=== PATIENT | male | born 1975 | race Caucasian/White ===

== ENCOUNTER 2017-06-15 21:58 | Emergency (ER) | payer SELFPAY ==
[~2017-06-15 21:58] MED LIST: AMLO5TAB22 PO; CREO2400 PO; PAXI10TA PO; PROM25SU8 PO; PROT40TA PO; SERO100T PO; TRAZ100 PO
[2017-06-15 22:09] VITALS: BP 118/60; PULSE 99; RESP 17; TEMP 98.8; O2SAT 97
== END 2017-06-15 23:20 | disposition left against medical advice (07) ==
LOC: NED 21:58
DX: R10.9 Unspecified abdominal pain (principal)
CPT/HCPCS: 99281

== ENCOUNTER 2018-02-15 00:45 | Inpatient (IN) ==
[2018-02-15] MEDS ORDERED: Sod Chloride 0.9% Inj 1,000 ML IV.SIG ONE (01:27)
--- NOTE | 2018-02-15 01:36 | ED ---
HPI General Chief Complaint: Alcohol Stated Complaint: Chronic Pancreatitis x 1 month Time Seen by Provider: 02/15/18 01:27 Source: patient Mode of arrival: ambulatory Limitations: no limitations History of Present Illness HPI narrative: 42-year-old male with history of chronic alcoholism and recurrent pancreatitis presents to the emergency department for reportedly 3-4 days of abdominal pain. Patient reports nausea and vomiting does not report bilious emesis hematemesis or coffee-ground emesis. Patient states he has not been evaluated over the past 3-4 days for his pain but review of medical record indicates that he was seen here 02/13/18 for same complaint. Patient was diagnosed with epigastric pain and discharged with refills for his Klonopin and his Tegretol. Patient states that he is unable to care for himself. Patient reports that he takes Tegretol for history of seizure disorder. Patient denies other concerns or complaints. No report of fever or chills. No report of injury or fall. Patient has a walking boot on his left lower extremity and reports that he has been told he has a foot fracture. MD complaint: Reports alcohol intoxication and alcohol dependence Last Drank: Just Prior to Arrival Chronic alcohol use: Yes Previous visits for alcohol intoxication: Yes Recent trauma: No Associated symptoms: Reports nausea, vomiting and abdominal pain; Denies syncope , seizure, diaphoresis, tremors, hematemesis, melena, depression and suicidality Treatments prior to arrival: Reports none Related Data Home Medications Medication Instructions Recorded Confirmed carbamazepine [Tegretol] 100 mg PO TID 02/13/18 02/15/18 lorazepam 1 mg PO BID PRN 02/13/18 02/15/18 paroxetine HCl 40 mg PO DAILY 02/13/18 02/15/18 morphine 30 mg PO Q8H 02/15/18 02/15/18 trazodone 300 mg PO DAILY 02/15/18 02/15/18 Previous Rx's Medication Instructions Recorded chlordiazepoxide HCl 25 mg PO DIRECTED #20 cap 02/13/18 Allergies Allergy/AdvReac Type Severity Reaction Status Date / Time ketorolac Allergy Unknown HIVES Verified 02/15/18 02:18 Review of Systems ROS: all other systems reviewed are [facility] Medical History Medical History Anxiety (Acute) Chronic pancreatitis (Acute) Depression (Acute) Seizures (Acute) Surgical history unknown (Acute) Social History Social History Substance History: Active Abuse Second Hand Smoke Exposure: No Smoking Status: Never smoker How Often Do You Have a Drink Containing Alcohol: 4 or more times a week [facility] within the Last 8 Weeks: No Recent Out of Country Travel within the Last 8 Weeks: No Exam Narrative Exam Narrative: GENERAL: Well-nourished, well-developed patient. No acute distress no respiratory distress appears mildly intoxicated GCS of 14 with mild slurring of speech. Patient admits to alcohol ingestion just prior to arrival to the emergency department. SKIN: Focused skin assessment warm/dry. HEAD: Normocephalic. Atraumatic no scalp soft tissue swelling tenderness abrasion laceration or bony abnormality to direct palpation. EYES: No scleral icterus. No injection or drainage. Pupils equal round reactive to light extraocular muscles intact. NECK: Supple, trachea midline. No JVD or lymphadenopathy. Supple no meningismus no nuchal rigidity nontender to direct palpation along the midline over the cervical spine. CARDIOVASCULAR: Increased regular rate and rhythm without murmurs, gallops, or rubs. RESPIRATORY: Breath sounds equal bilaterally. No accessory muscle use. GASTROINTESTINAL: Abdomen soft, mild epigastric tenderness to direct palpation without guarding or rebound nondistended. Nondistended. MUSCULOSKELETAL: No cyanosis, or edema. Walking boot on left lower extremity. BACK: Nontender without obvious deformity. No CVA tenderness. Course Initial Documented Vital Signs Temperature 98.3 F 02/15/18 01:05 Pulse Rate 109 H 02/15/18 01:05 Respiratory Rate 18 02/15/18 01:05 Blood Pressure 146/80 H 02/15/18 01:05 Pulse Oximetry 98 02/15/18 01:05 Last Documented Vital Signs Temperature 97.8 F 02/16/18 16:00 Pulse Rate 66 02/16/18 16:00 Respiratory Rate 20 02/16/18 16:00 Blood Pressure 128/85 02/16/18 16:00 Pulse Oximetry 95 02/16/18 16:00 Medical Decision Making MDM Narrative Medical decision making narrative: 42-year-old male presents to the emergency department by private transportation reports that he was dropped off by the bus but only arrived here approximately 30 minutes ago and no buses are running at this time patient states that he was dropped off much earlier and according to triage notes patient was reportedly escorted here from while while gas station by police and left at the triage area. History of repetitive alcohol abuse with recent alcohol ingestion complaining of epigastric discomfort with complaint of nausea vomiting no report of hematemesis coffee-ground emesis bilious emesis of feculent emesis. Patient also reports occasional diarrhea. No fever or chills. No recent fall or injury. IV access obtained specimens collections of resulting imaging a chest x-ray ordered for evaluation of possible free air; serum alcohol level sent along with UDS. Discussed admission with Jagdish [facility] service Medical Screen Exam Complete: Yes Emergency Medical Condition: Yes Differential Diagnosis Differential Diagnosis: Abdominal pain, pancreatitis, alcohol gastritis, intoxication, alcohol withdrawal, dehydration, electrolyte disturbance, GI bleed Medical Records Medical records reviewed: Yes I reviewed the patient's medical records. Lab Data Lab results reviewed: Yes I reviewed the patient's lab results. Result diagrams: 02/16/18 04:45 02/16/18 04:45 Lab Results 02/15/18 02/15/18 02/15/18 Range/Units 02:05 02:05 02:05 CBC w Diff Auto diff final WBC 4.8 (4.0-11.0) th/mm3 RBC 4.46 L (4.50-5.90) mil/mm3 Hgb 11.4 L (13.0-17.0) gm/dL Hct 34.8 L (39.0-51.0) % MCV 78.1 L (80.0-100.0) fL MCH 25.5 L (27.0-34.0) pg MCHC 32.6 (32.0-36.0) % RDW 19.9 H (11.6-17.2) % Plt Count 149 L (150-450) th/mm3 MPV 8.1 (7.0-11.0) fL Neut % (Auto) 54.7 (16.0-70.0) % Lymph % (Auto) 24.7 (9.0-44.0) % [place] % (Auto) 18.1 H (0.0-8.0) % Eos % (Auto) 2.1 (0.0-4.0) % Baso % (Auto) 0.4 (0.0-2.0) % Neut # (Auto) 2.6 (1.8-7.7) th/mm3 Lymph # (Auto) 1.2 (1.0-4.8) th/mm3 [place] # (Auto) 0.9 (0.0-0.9) th/mm3 Eos # (Auto) 0.1 (0.0-0.4) th/mm3 Baso # (Auto) 0.0 (0.0-0.2) th/mm3 WBC Differential . Diff Scan Differential Comment . Platelet Estimate (Normal) Platelet Morphology (Normal) Ovalocytes (None) Sodium 146 H (136-145) meq/L Potassium 3.4 L D (3.5-5.1) meq/L Chloride 109 H (98-107) meq/L Carbon Dioxide 28.0 (21.0-32.0) meq/L Anion Gap 9 (5-15) meq/L BUN 9 (7-18) mg/dL Creatinine 0.63 (0.60-1.30) mg/dL Estimated GFR Greater than 89 (>89) mL/min POC Glucose (68-110) mg/dl Random Glucose 97 (74-106) mg/dL Calcium 7.3 L* (8.5-10.1) mg/dL Calcium Adj for Albumin 7.0 L* (8.5-10.1) mg/dL Magnesium 1.9 (1.5-2.5) mg/dL Total Bilirubin 0.5 (0.2-1.0) mg/dL AST 399 H (15-37) U/L ALT 348 H (12-78) U/L Alkaline Phosphatase 298 H (45-117) U/L Ammonia (11-32) mcmol/L Total Protein 7.8 (6.4-8.2) g/dL Albumin 3.1 L (3.4-5.0) g/dL Lipase 858 H (73-393) U/L Tumor Marker AFP (0.5-8.0) ng/mL Urine Color (Yellw/Straw) Urine Clarity (Clear) Urine pH (5.0-8.5) Ur Specific [place] (1.002-1.035) Urine Protein (Neg-Trace) mg/dL Urine Glucose (UA) (Negative) mg/dL Urine Ketones (Negative) mg/dL Urine Occult Blood (Negative) Urine Nitrate (Negative) Urine Bilirubin (Negative) Urine Urobilinogen (Less than 2) mg/dL Ur Leukocyte Esterase (Negative) Urine RBC (0-3) /hpf Urine WBC (0-5) /hpf Ur Squamous Epith Cells (0-5) /hpf Calcium Oxalate Crystal (None) /hpf Urine Mucus (Occasional) /lpf Micro UA Comment Ur Microscopic Review Urine Culture Comments Urine Opiates Screen (Neg) Ur Barbiturates Screen (Neg) Carbamazepine 3.2 L (4.0-12.0) mcg/mL Ur Amphetamines Screen (Neg) U Benzodiazepines Scrn (Neg) Urine Cocaine Screen (Neg) U Cannabinoids Screen (Neg) Serum Alcohol 313 H (0-5) mg/dL 02/15/18 02/15/18 02/15/18 Range/Units 04:05 04:05 08:35 CBC w Diff WBC (4.0-11.0) th/mm3 RBC (4.50-5.90) mil/mm3 Hgb (13.0-17.0) gm/dL Hct (39.0-51.0) % MCV (80.0-100.0) fL MCH (27.0-34.0) pg MCHC (32.0-36.0) % RDW (11.6-17.2) % Plt Count (150-450) th/mm3 MPV (7.0-11.0) fL Neut % (Auto) (16.0-70.0) % Lymph % (Auto) (9.0-44.0) % [place] % (Auto) (0.0-8.0) % Eos % (Auto) (0.0-4.0) % Baso % (Auto) (0.0-2.0) % Neut # (Auto) (1.8-7.7) th/mm3 Lymph # (Auto) (1.0-4.8) th/mm3 [place] # (Auto) (0.0-0.9) th/mm3 Eos # (Auto) (0.0-0.4) th/mm3 Baso # (Auto) (0.0-0.2) th/mm3 WBC Differential Diff Scan Differential Comment Platelet Estimate (Normal) Platelet Morphology (Normal) Ovalocytes (None) Sodium (136-145) meq/L Potassium (3.5-5.1) meq/L Chloride (98-107) meq/L Carbon Dioxide (21.0-32.0) meq/L Anion Gap (5-15) meq/L BUN (7-18) mg/dL Creatinine (0.60-1.30) mg/dL Estimated GFR (>89) mL/min POC Glucose 123 H (68-110) mg/dl Random Glucose (74-106) mg/dL Calcium (8.5-10.1) mg/dL Calcium Adj for Albumin (8.5-10.1) mg/dL Magnesium (1.5-2.5) mg/dL Total Bilirubin (0.2-1.0) mg/dL AST (15-37) U/L ALT (12-78) U/L Alkaline Phosphatase (45-117) U/L Ammonia (11-32) mcmol/L Total Protein (6.4-8.2) g/dL Albumin (3.4-5.0) g/dL Lipase (73-393) U/L Tumor Marker AFP (0.5-8.0) ng/mL Urine Color Shira H (Yellw/Straw) Urine Clarity Clear (Clear) Urine pH 6.0 (5.0-8.5) Ur Specific [place] 1.025 (1.002-1.035) Urine Protein Negative (Neg-Trace) mg/dL Urine Glucose (UA) Negative (Negative) mg/dL Urine Ketones Trace H (Negative) mg/dL Urine Occult Blood Negative (Negative) Urine Nitrate Negative (Negative) Urine Bilirubin Negative (Negative) Urine Urobilinogen 1.0 (Less than 2) mg/dL Ur Leukocyte Esterase Negative (Negative) Urine RBC 0-3 (0-3) /hpf Urine WBC 0-5 (0-5) /hpf Ur Squamous Epith Cells 0-5 (0-5) /hpf Calcium Oxalate Crystal Few H (None) /hpf Urine Mucus Moderate H (Occasional) /lpf Micro UA Comment Culture not ind Ur Microscopic Review Microscopic reviewed Urine Culture Comments Culture not ind Urine Opiates Screen Neg (Neg) Ur Barbiturates Screen Neg (Neg) Carbamazepine (4.0-12.0) mcg/mL Ur Amphetamines Screen Neg (Neg) U Benzodiazepines Scrn Pos H (Neg) Urine Cocaine Screen Pos H (Neg) U Cannabinoids Screen Pos H (Neg) Serum Alcohol (0-5) mg/dL 02/15/18 02/15/18 02/15/18 Range/Units 11:44 18:29 19:05 CBC w Diff WBC (4.0-11.0) th/mm3 RBC (4.50-5.90) mil/mm3 Hgb (13.0-17.0) gm/dL Hct (39.0-51.0) % MCV (80.0-100.0) fL MCH (27.0-34.0) pg MCHC (32.0-36.0) % RDW (11.6-17.2) % Plt Count (150-450) th/mm3 MPV (7.0-11.0) fL Neut % (Auto) (16.0-70.0) % Lymph % (Auto) (9.0-44.0) % [place] % (Auto) (0.0-8.0) % Eos % (Auto) (0.0-4.0) % Baso % (Auto) (0.0-2.0) % Neut # (Auto) (1.8-7.7) th/mm3 Lymph # (Auto) (1.0-4.8) th/mm3 [place] # (Auto) (0.0-0.9) th/mm3 Eos # (Auto) (0.0-0.4) th/mm3 Baso # (Auto) (0.0-0.2) th/mm3 WBC Differential Diff Scan Differential Comment Platelet Estimate (Normal) Platelet Morphology (Normal) Ovalocytes (None) Sodium (136-145) meq/L Potassium (3.5-5.1) meq/L Chloride (98-107) meq/L Carbon Dioxide (21.0-32.0) meq/L Anion Gap (5-15) meq/L BUN (7-18) mg/dL Creatinine (0.60-1.30) mg/dL Estimated GFR (>89) mL/min POC Glucose 106 88 (68-110) mg/dl Random Glucose (74-106) mg/dL Calcium (8.5-10.1) mg/dL Calcium Adj for Albumin (8.5-10.1) mg/dL Magnesium (1.5-2.5) mg/dL Total Bilirubin (0.2-1.0) mg/dL AST (15-37) U/L ALT (12-78) U/L Alkaline Phosphatase (45-117) U/L Ammonia (11-32) mcmol/L Total Protein (6.4-8.2) g/dL Albumin (3.4-5.0) g/dL Lipase (73-393) U/L Tumor Marker AFP 3.7 (0.5-8.0) ng/mL Urine Color (Yellw/Straw) Urine Clarity (Clear) Urine pH (5.0-8.5) Ur Specific [place] (1.002-1.035) Urine Protein (Neg-Trace) mg/dL Urine Glucose (UA) (Negative) mg/dL Urine Ketones (Negative) mg/dL Urine Occult Blood (Negative) Urine Nitrate (Negative) Urine Bilirubin (Negative) Urine Urobilinogen (Less than 2) mg/dL Ur Leukocyte Esterase (Negative) Urine RBC (0-3) /hpf Urine WBC (0-5) /hpf Ur Squamous Epith Cells (0-5) /hpf Calcium Oxalate Crystal (None) /hpf Urine Mucus (Occasional) /lpf Micro UA Comment Ur Microscopic Review Urine Culture Comments Urine Opiates Screen (Neg) Ur Barbiturates Screen (Neg) Carbamazepine (4.0-12.0) mcg/mL Ur Amphetamines Screen (Neg) U Benzodiazepines Scrn (Neg) Urine Cocaine Screen (Neg) U Cannabinoids Screen (Neg) Serum Alcohol (0-5) mg/dL 02/16/18 02/16/18 02/16/18 Range/Units 04:45 04:45 08:09 CBC w Diff Slide review pending WBC 2.4 L (4.0-11.0) th/mm3 RBC 4.10 L (4.50-5.90) mil/mm3 Hgb 10.0 L (13.0-17.0) gm/dL Hct 31.8 L (39.0-51.0) % MCV 77.7 L (80.0-100.0) fL MCH 24.3 L (27.0-34.0) pg MCHC 31.3 L (32.0-36.0) % RDW 19.4 H (11.6-17.2) % Plt Count 93 L D (150-450) th/mm3 MPV 8.0 (7.0-11.0) fL Neut % (Auto) 56.0 (16.0-70.0) % Lymph % (Auto) 30.4 (9.0-44.0) % [place] % (Auto) 11.0 H (0.0-8.0) % Eos % (Auto) 1.9 (0.0-4.0) % Baso % (Auto) 0.7 (0.0-2.0) % Neut # (Auto) 1.4 L (1.8-7.7) th/mm3 Lymph # (Auto) 0.7 L (1.0-4.8) th/mm3 [place] # (Auto) 0.3 (0.0-0.9) th/mm3 Eos # (Auto) 0.0 (0.0-0.4) th/mm3 Baso # (Auto) 0.0 (0.0-0.2) th/mm3 WBC Differential . Diff Scan Auto diff confirmed Differential Comment . Platelet Estimate Low L (Normal) Platelet Morphology Normal (Normal) Ovalocytes 1+ H (None) Sodium 142 (136-145) meq/L Potassium 3.4 L (3.5-5.1) meq/L Chloride 105 (98-107) meq/L Carbon Dioxide 28.5 (21.0-32.0) meq/L Anion Gap 9 (5-15) meq/L BUN 9 (7-18) mg/dL Creatinine 0.55 L (0.60-1.30) mg/dL Estimated GFR Greater than 89 (>89) mL/min POC Glucose 83 (68-110) mg/dl Random Glucose 73 L (74-106) mg/dL Calcium 7.4 L* (8.5-10.1) mg/dL Calcium Adj for Albumin 8.4 L D (8.5-10.1) mg/dL Magnesium (1.5-2.5) mg/dL Total Bilirubin 1.3 H (0.2-1.0) mg/dL AST 448 H (15-37) U/L ALT 324 H (12-78) U/L Alkaline Phosphatase 315 H (45-117) U/L Ammonia (11-32) mcmol/L Total Protein 6.6 D (6.4-8.2) g/dL Albumin 2.7 L (3.4-5.0) g/dL Lipase 847 H (73-393) U/L Tumor Marker AFP (0.5-8.0) ng/mL Urine Color (Yellw/Straw) Urine Clarity (Clear) Urine pH (5.0-8.5) Ur Specific [place] (1.002-1.035) Urine Protein (Neg-Trace) mg/dL Urine Glucose (UA) (Negative) mg/dL Urine Ketones (Negative) mg/dL Urine Occult Blood (Negative) Urine Nitrate (Negative) Urine Bilirubin (Negative) Urine Urobilinogen (Less than 2) mg/dL Ur Leukocyte Esterase (Negative) Urine RBC (0-3) /hpf Urine WBC (0-5) /hpf Ur Squamous Epith Cells (0-5) /hpf Calcium Oxalate Crystal (None) /hpf Urine Mucus (Occasional) /lpf Micro UA Comment Ur Microscopic Review Urine Culture Comments Urine Opiates Screen (Neg) Ur Barbiturates Screen (Neg) Carbamazepine (4.0-12.0) mcg/mL Ur Amphetamines Screen (Neg) U Benzodiazepines Scrn (Neg) Urine Cocaine Screen (Neg) U Cannabinoids Screen (Neg) Serum Alcohol (0-5) mg/dL 02/16/18 02/16/18 Range/Units 11:47 13:30 CBC w Diff WBC (4.0-11.0) th/mm3 RBC (4.50-5.90) mil/mm3 Hgb (13.0-17.0) gm/dL Hct (39.0-51.0) % MCV (80.0-100.0) fL MCH (27.0-34.0) pg MCHC (32.0-36.0) % RDW (11.6-17.2) % Plt Count (150-450) th/mm3 MPV (7.0-11.0) fL Neut % (Auto) (16.0-70.0) % Lymph % (Auto) (9.0-44.0) % [place] % (Auto) (0.0-8.0) % Eos % (Auto) (0.0-4.0) % Baso % (Auto) (0.0-2.0) % Neut # (Auto) (1.8-7.7) th/mm3 Lymph # (Auto) (1.0-4.8) th/mm3 [place] # (Auto) (0.0-0.9) th/mm3 Eos # (Auto) (0.0-0.4) th/mm3 Baso # (Auto) (0.0-0.2) th/mm3 WBC Differential Diff Scan Differential Comment Platelet Estimate (Normal) Platelet Morphology (Normal) Ovalocytes (None) Sodium (136-145) meq/L Potassium (3.5-5.1) meq/L Chloride (98-107) meq/L Carbon Dioxide (21.0-32.0) meq/L Anion Gap (5-15) meq/L BUN (7-18) mg/dL Creatinine (0.60-1.30) mg/dL Estimated GFR (>89) mL/min POC Glucose 133 H (68-110) mg/dl Random Glucose (74-106) mg/dL Calcium (8.5-10.1) mg/dL Calcium Adj for Albumin (8.5-10.1) mg/dL Magnesium (1.5-2.5) mg/dL Total Bilirubin (0.2-1.0) mg/dL AST (15-37) U/L ALT (12-78) U/L Alkaline Phosphatase (45-117) U/L Ammonia 48 H (11-32) mcmol/L Total Protein (6.4-8.2) g/dL Albumin (3.4-5.0) g/dL Lipase (73-393) U/L Tumor Marker AFP (0.5-8.0) ng/mL Urine Color (Yellw/Straw) Urine Clarity (Clear) Urine pH (5.0-8.5) Ur Specific [place] (1.002-1.035) Urine Protein (Neg-Trace) mg/dL Urine Glucose (UA) (Negative) mg/dL Urine Ketones (Negative) mg/dL Urine Occult Blood (Negative) Urine Nitrate (Negative) Urine Bilirubin (Negative) Urine Urobilinogen (Less than 2) mg/dL Ur Leukocyte Esterase (Negative) Urine RBC (0-3) /hpf Urine WBC (0-5) /hpf Ur Squamous Epith Cells (0-5) /hpf Calcium Oxalate Crystal (None) /hpf Urine Mucus (Occasional) /lpf Micro UA Comment Ur Microscopic Review Urine Culture Comments Urine Opiates Screen (Neg) Ur Barbiturates Screen (Neg) Carbamazepine (4.0-12.0) mcg/mL Ur Amphetamines Screen (Neg) U Benzodiazepines Scrn (Neg) Urine Cocaine Screen (Neg) U Cannabinoids Screen (Neg) Serum Alcohol (0-5) mg/dL Imaging Data Radiologist's impression: Chest X-Ray 02/15/18 01:27 CONCLUSION: Negative examination. Foot X-Ray 02/15/18 03:05 CONCLUSION: Prior trauma. Osteopenia. Abdomen/Pelvis CT 02/15/18 03:22 CONCLUSION: 1. Mild wall thickening involving multiple loops of proximal small bowel without dilatation. 2. Mild stranding of the root of the mesentery. This could relate to venous congestion secondary to the patient's underlying liver disease. 3. Cirrhosis. 4. Long-term stable mildly enlarged retroperitoneal lymph nodes. Discharge Plan Discharge Disposition Patient Disposition: ED Admit(ED Internal Use Only) Discharge Condition Condition: Stable Discharge Order Discharge Orders: ED Use Only Admit Order (Routine); Ordered 02/15/18 Ordered By: Gillian Bliss Discharge Details Diagnosis: Acute pancreatitis, Alcohol withdrawal syndrome, Alcohol abuse Physicians Team ED Provider: Gillian Bliss Primary Care Provider: Primary Care Tierney Moreno Attending Provider: Daylin Shepard Other Providers: Meliton Barkley Discharge Interventions Interventions: ED Discharge Assessment Last Done: 02/15/18 05:42 Status ED Status: Left Department Discharge Information Discharge Date/Time: 02/15/18 05:30
--- NOTE | 2018-02-15 01:58 | XR ---
EXAM DATE: 02/15/2018 1:45 AM EST AGE/SEX: 42 years / Male INDICATIONS: Chest pain. CLINICAL DATA: This is the patient's initial encounter. Patient reports that signs and symptoms have been present for 1 day and indicates a pain score of Nonresponsive. MEDICAL/SURGICAL HISTORY: Pancreatitis. None. COMPARISON: [facility] [place], 02/23/2014. . FINDINGS: A single AP view of the chest demonstrates the lungs to be symmetrically aerated without evidence of mass, infiltrate or effusion. The cardiomediastinal contours are unremarkable. Osseous structures a re intact. CONCLUSION: Negative examination. Electronically signed by: Madhu Julian MD 02/15/2018 1:57 AM EST
[2018-02-15 02:15] LABS: Baso % (Auto) 0.4 % (0.0-2.0); Eos # (Auto) 0.1 th/mm3 (0.0-0.4); Eos % (Auto) 2.1 % (0.0-4.0); Hematocrit 34.8 % (39.0-51.0); Hemoglobin 11.4 gm/dL (13.0-17.0); Lymph # (Auto) 1.2 th/mm3 (1.0-4.8); Lymph % (Auto) 24.7 % (9.0-44.0); Mean Corpuscular HGB Conc 32.6 % (32.0-36.0); Mean Corpuscular Hemoglobin 25.5 pg (27.0-34.0); Mean Corpuscular Volume 78.1 fL (80.0-100.0); Mean Platelet Volume 8.1 fL (7.0-11.0); Mono # (Auto) 0.9 th/mm3 (0.0-0.9); Mono % (Auto) 18.1 % (0.0-8.0); Neut # (Auto) 2.6 th/mm3 (1.8-7.7); Neut % (Auto) 54.7 % (16.0-70.0); Platelet Count 149 th/mm3 (150-450); Red Blood Count 4.46 mil/mm3 (4.50-5.90); Red Cell Distribution Width 19.9 % (11.6-17.2); White Blood Count 4.8 th/mm3 (4.0-11.0)
[2018-02-15 02:42] LABS: Alanine Aminotransferase 348 U/L (12-78); Albumin 3.1 g/dL (3.4-5.0); Alkaline Phosphatase 298 U/L (45-117); Anion Gap 9 meq/L (5-15); Aspartate Aminotransferase 399 U/L (15-37); Blood Urea Nitrogen 9 mg/dL (7-18); Calcium 7.3 mg/dL (8.5-10.1); Chloride 109 meq/L (98-107); Glomerular Filtration Rate Greater Than 89 mL/min (>89); Glucose,Random 97 mg/dL (74-106); Lipase 858 U/L (73-393); Magnesium 1.9 mg/dL (1.5-2.5); Potassium 3.4 meq/L (3.5-5.1); Sodium 146 meq/L (136-145); Total Protein 7.8 g/dL (6.4-8.2)
[2018-02-15] MEDS ORDERED: Haloperidol Inj 5 MG/ML Ampul IV.PUSH PRN (02:55)
[2018-02-15 02:57] LABS: Alcohol 313 mg/dL (0-5)
[2018-02-15] MEDS ORDERED: Acetaminophen 325 MG Tablet PO PRN (03:19)
[2018-02-15] MEDS ORDERED: Bisacodyl 10 MG Supp RECTAL PRN (03:19)
[2018-02-15] MEDS ORDERED: Potassium Chlor 10 mEq Premix 10 MEQ/100 ML PIGGYBACK IV.SIG ONE (03:20)
[2018-02-15] MEDS ORDERED: Calcium Gluconate Inj 1 GM in Dextrose 5% in Water Inj 100 ML IV.SIG ONE ×2 (03:20)
[2018-02-15] MEDS ORDERED: Sod Chloride 0.9% Inj 1,000 ML IV.CONT SCH (03:30)
[2018-02-15] MEDS: LORazepam 1 MG Tablet PO PRN ×4 (03:35→17:46)
[2018-02-15] MEDS: Pantoprazole Inj 40 MG Vial IV.PUSH SCH ×2 (03:36→17:47)
[2018-02-15] MEDS: Morphine Inj 4 MG/ML Vial IV.PUSH PRN ×5 (03:37→22:12)
--- NOTE | 2018-02-15 03:43 | XR ---
EXAM DATE: 02/15/2018 3:29 AM EST AGE/SEX: 42 years / Male INDICATIONS: Left foot pain. CLINICAL DATA: This is the patient's initial encounter. Patient reports that signs and symptoms have been present for 1 day and indicates a pain score of Nonresponsive. MEDICAL/SURGICAL HISTORY: None. None. COMPARISON: None. FINDINGS: Multiple views of the foot show diffuse osteopenia. No fracture or dislocation. Orthopedic hardware p artially seen involving the distal fibula and tibia. Soft tissues are unremarkable. CONCLUSION: Prior trauma. Osteopenia. Electronically signed by: Madhu Julian MD 02/15/2018 3:41 AM EST
[2018-02-15 04:12] LABS: Bilirubin,Urine Negative (Negative); Clarity,Urine Clear (Clear); Color,Urine Amber (Yellw/Straw); Glucose,Urine (UA) Negative (Negative); Leukocyte Esterase,Urine Negative (Negative); Nitrite,Urine Negative (Negative); Specific Gravity,Urine 1.025 (1.002-1.035)
[2018-02-15 04:17] LABS: Calcium Oxalate Crystals,Urine Few /hpf; Mucus,Urine Moderate /lpf (Occasional); RBC,Urine 0-3 /hpf (0-3); Squamous Epithelial Cell,Urine 0-5 /hpf (0-5); WBC,Urine 0-5 /hpf (0-5)
[2018-02-15 04:18] LABS: Amphetamine Screen,Urine Neg (Neg); Barbiturate Screen,Urine Neg (Neg)
[2018-02-15 04:19] LABS: Cannabinoid Screen,Urine Pos (Neg); Cocaine Screen,Urine Pos (Neg)
--- NOTE | 2018-02-15 04:24 | CT ---
EXAM DATE: 02/15/2018 4:02 AM EST AGE/SEX: 42 years / Male INDICATIONS: Epigastric pain. Nausea and vomiting. CLINICAL DATA: This is the patient's initial encounter. Patient reports that signs and symptoms have been present for 3 days and indicates a pain score of 9/10. MEDICAL/SURGICAL HISTORY: Pancreatitis. Seizures. Cholecystectomy. ORAL CONTRAST: No oral contrast ingested. RADIATION DOSE: 12.94 CTDI (mGy) COMPARISON: [facility] – [place], CT ABDOMEN & PELVIS W CONTRAST, 01/25/2013. . TECHNIQUE: Multiple contiguous axial images were obtained through the abdomen and pelvis following b olus infusion of 95 ml Omnipaque 350 (iohexol) nonionic water-soluble contrast as a single exam dos e. No oral contrast ingested. Using automated exposure control and adjustment of the mA and/or kV ac cording to patient size, radiation dose was kept as low as reasonably achievable to obtain optimal di agnostic quality images. DICOM format image data is available electronically for review and comparis on. FINDINGS: Lower Lungs: The visualized lower lungs are clear. Liver: Cirrhotic changes involving the liver. No discrete mass or ductal dilatation. Gallbladder surg ically absent. Portal vein remains patent. Recannulated periumbilical vein. Gallbladder surgically ab sent. Spleen: Splenomegaly without lesion.. Pancreas: Unremarkable without mass or calcification. Kidneys: Normal in size and shape. No evidence of mass or hydronephrosis. Adrenal Glands: Unremarkable. Aorta: The aorta and proximal iliac vessels are grossly unremarkable without aneurysmal dilation. Bowel/Mesentery: Diffuse mild wall thickening involving the proximal small bowel. No dilatation. No free air or free fluid. Mild stranding of the root of the mesentery. Abdominal Wall: Intact. Retroperitoneum: Mildly enlarged lymph nodes are seen centered around the celiac. These are stable a s are the tiny lymph nodes within the retroperitoneum along the periaortic region.. Bladder: Contours are smooth. Reproductive Organs: No abnormal masses or calcifications seen. Inguinal: The inguinal region is unremarkable without evidence of adenopathy. Bony Structures: Unremarkable. CONCLUSION: 1. Mild wall thickening involving multiple loops of proximal small bowel without dilatation. 2. Mild stranding of the root of the mesentery. This could relate to venous congestion secondary to the patient's underlying liver disease. 3. Cirrhosis. 4. Long-term stable mildly enlarged retroperitoneal lymph nodes. Electronically signed by: Madhu Julian MD 02/15/2018 4:23 AM EST
[2018-02-15 04:30] LABS: Opiate Screen,Urine Neg (Neg)
[2018-02-15] MEDS: Multivitamin/Minerals Therapeutic Tablet PO SCH (09:21)
[2018-02-15] MEDS: Senna/Docusate Sodium 8.6/50 MG Tablet PO SCH ×2 (09:21→22:15)
[2018-02-15] MEDS: Folic Acid 1 MG Tablet PO SCH (09:21)
--- NOTE | 2018-02-15 09:55 | P.HP ---
History of Present Illness Primary Care Physician: No Primary Care Physician Chief Complaint: Abdominal pain, n/v History of Present Illness: This is a 42-year-old male patient with a known medical history of alcohol abuse , hepatitis C history as well as cirrhosis presented to the ED with complaints of severe abdominal pain times 3-4 days. Patient also admits that he has been nauseous as well as vomiting, although denies any coffee-ground emesis or hematemesis. Patient does admit to drinking 1/2 gallon of vodka per day for the last 3 years, has been abusing alcohol for many years prior to this. He states that he does have seizures associated with alcohol withdrawal and was recently hospitalized in [facility] roughly a month ago. He states at that time an MRI was done as well as an EEG and he was continued on his Tegretol. Patient is homeless, he states that he has been intermittently taking his medications and has been actively drinking. It should be noted that patient does have a left foot fracture for which she has been told to walk in a boot. Repeat x-ray does not show a fracture at this time. Patient does admit to multiple bouts of pancreatitis and has been hospitalized many times in the area. He denies any previous colonoscopy, states that his last EGD was many years ago and diagnosed with esophageal varices. Patient does state that he got a call last week stating he has some type of carcinoma in his liver. The records were reviewed here and there were no signs of said diagnosis. Will attempt to obtain records from other hospitals. Patient does not follow with the primary care physician nor repair miller. His management has been consulted to assist. - Diagnosis (1) Acute pancreatitis Inpatient Certification: I certify that the inpatient services were ordered in accordance with Medicare regulations governing the order. This includes certification that hospital inpatient services are reasonable and necessary and in the case of services not specified as inpatient-only under 42 CFR 419.22(n), that they are appropriately provided as inpatient services in accordance to with the 2-midnight benchmark under 43 CFR 412.3(e) Review of Systems All other systems reviewed negative except as stated in HPI PMFSH - History History Provided By: Patient - Medical History Medical History: Medical History (Last Reviewed 02/15/18 @ 09:54 by Tamra Hidalgo) Anxiety Chronic pancreatitis Depression Seizures Surgical history unknown - Surgical History Surgical History: Surgical History (Last Reviewed 02/15/18 @ 09:54 by Tamra Hidalgo) History of cholecystectomy - Social History I have reviewed the patient's Social History: Yes - Tobacco History Second Hand Smoke Exposure: No Tobacco Use In Past 30 Days: No Smoking Status: Never smoker - Alcohol History How Often Do You Have a Drink Containing Alcohol: 4 or more times a week - Substance Use History Substance History: Active Abuse - Substance Use Type Crack/Cocaine Status: Active Route Used: By Mouth Frequency: pt states cocaine is just sometimes mixed in with the marijuana Marijuana Status: Active Route Used: By Mouth Frequency: 1-5 times a week Reason for Use: Feels Good Comment: pt states it helps with pain relief Alcohol Status: Active Route Used: By Mouth Frequency: 1 gallon of vodka every day Reason for Use: Feels Good Comment: pt states it helps with pain relief. - Travel History Recent Travel in the [place] Within the Last 8 Weeks: No Recent Travel Out of the Country Within the Last 8 Weeks: No - Immunization History Tetanus Immunization: >5 Years Hx Influenza Vaccine This Season: Yes Medications and Allergies Active Medications: Active Medications Acetaminophen (Tylenol) 650 mg PO Q4H PRN PRN Reason: Temp > 100.4 Al Hydroxide/Mg Hydroxide (Milk Of Magnesia Liq) 30 ml PO Q12H PRN PRN Reason: Mild Constipation Bisacodyl (Dulcolax Supp) 10 mg RECTAL DAILY PRN PRN Reason: SEVERE CONSITIPATION Flumazenil (Romazecon Inj) 0.2 mg IV.PUSH Q1M PRN PRN Reason: OVERSEDATION Folic Acid (Folic Acid) 1 mg PO DAILY EVAN Stop: 02/20/18 08:59 Last Admin: 02/15/18 09:21 Dose: 1 mg Haloperidol Lactate (Haldol Inj) 1 mg IV.PUSH Q15M PRN PRN Reason: for severe agitation Thiamine HCl 100 mg/ Sodium (Chloride) 101 mls @ 100 mls/hr IV.SIG DAILY EVAN Stop: 02/19/18 08:59 Sodium Chloride (Ns Inj) 1,000 mls @ 100 mls/hr IV.CONT .Q10H EVAN Last Infusion: 02/15/18 05:06 Dose: Infused Lactulose (Lactulose Liq) 30 ml PO DAILY PRN PRN Reason: SEVERE CONSITIPATION Lorazepam (Ativan Inj) 1 mg IV.PUSH Q4H PRN PRN Reason: for CIWA 8-10 Lorazepam (Ativan Inj) 2 mg IV.PUSH Q15M PRN PRN Reason: for CIWA > 20 Lorazepam (Ativan Inj) 2 mg IV.PUSH Q1H PRN PRN Reason: for CIWA 15-20 Lorazepam (Ativan Inj) 2 mg IV.PUSH Q2H PRN PRN Reason: for CIWA 11-14 Lorazepam (Ativan) 1 mg PO Q4H PRN PRN Reason: for CIWA 8-10 Last Admin: 02/15/18 07:56 Dose: 1 mg Lorazepam (Ativan) 2 mg PO Q2H PRN PRN Reason: for CIWA 11-14 Morphine Sulfate (Morphine Inj) 2 mg IV.PUSH Q4H PRN PRN Reason: PAIN 6-10 Last Admin: 02/15/18 07:50 Dose: 2 mg Multivitamins/Minerals (Theragran-M) 1 tab PO DAILY [facility] Stop: 02/20/18 08:59 Last Admin: 02/15/18 09:21 Dose: 1 tab Ondansetron HCl (Zofran Inj) 4 mg IV.PUSH Q6H PRN PRN Reason: NAUSEA OR VOMITING Last Admin: 02/15/18 03:37 Dose: 4 mg Pantoprazole Sodium (Protonix Inj) 40 mg IV.PUSH Q12H [facility] Last Admin: 02/15/18 03:36 Dose: 40 mg Senna/Docusate Sodium (Laura-Colace) 1 tab PO BID [facility] Last Admin: 02/15/18 09:21 Dose: 1 tab Sennosides (Senokot) 17.2 mg PO Q12H PRN PRN Reason: Moderate Constipation Sodium Chloride (Ns Flush) 2 ml IV.FLUSH PRN PRN PRN Reason: FLUSH AFTER USING IV ACCESS Sodium Chloride (Ns Flush) 2 ml IV.FLUSH PRN PRN PRN Reason: FLUSH AFTER USING IV ACCESS Sodium Chloride (Ns Flush) 2 ml IV.FLUSH BID [facility] Last Admin: 02/15/18 09:22 Dose: Not Given Thiamine HCl (Vitamin B1) 100 mg PO DAILY [facility] Allergies Allergy/AdvReac Type Severity Reaction Status Date / Time ketorolac Allergy Unknown HIVES Verified 02/15/18 02:18 Home Medications Medication Instructions Recorded Confirmed Type carbamazepine [Tegretol] 100 mg PO TID 02/13/18 02/15/18 History lorazepam 1 mg PO BID PRN 02/13/18 02/15/18 History paroxetine HCl 40 mg PO DAILY 02/13/18 02/15/18 History morphine 30 mg PO Q8H 02/15/18 02/15/18 History trazodone 300 mg PO DAILY 02/15/18 02/15/18 History Exam Vital signs: Vital Signs 02/15/18 01:05 02/15/18 02:00 02/15/18 02:55 Temperature 98.3 F Pulse Rate 109 H 98 H Respiratory Rate 18 18 Blood Pressure 146/80 H 129/74 136/84 Pulse Oximetry 98 02/15/18 02:57 02/15/18 04:00 02/15/18 05:00 Temperature 97.9 F Pulse Rate 98 H 102 H 98 H Respiratory Rate 18 18 18 Blood Pressure 119/66 120/65 109/65 Pulse Oximetry 97 97 02/15/18 05:45 Temperature Pulse Rate 97 H Respiratory Rate 18 Blood Pressure 118/74 Pulse Oximetry Intake & Output 02/14/18 02/15/18 02/15/18 18:59 06:59 18:59 Intake Total 2210 / 2210 Output Total 150 / 150 Balance 2059 / 2059 Weight 100 kg Intake: IV 2210 / 2210 NS Inj 1,000 ML @ 100 mls/hr IV 1000 / 1000 .CONT .Q10H EVAN Rx#:[id number] Calcium Gluconate Inj 1 GM In 110 / 110 D5W Inj 100 ML @ 110 mls/hr IV. SIG ONCE ONE Rx#:[id number] KCl 10 mEq Premix Inj 10 meq In 100 / 100 100 ml @ 100 mls/hr IV.SIG ONCE ONE Rx#:[id number] NS Inj 1,000 ML @ Wide Open IV. 1000 / 1000 SIG BOLUS ONE Rx#:[id number] Output: Urine 150 / 150 Other: # Voids 1 Weight On Admission 100 kg Narrative: GENERAL: Well-developed, well-nourished patient in [facility]. SKIN: Warm and dry. No rash. HEAD: Normocephalic. Atraumatic. EYES: Pupils equal and round. No scleral icterus. No injection or drainage. ENT: No nasal bleeding or discharge. Mucous membranes pink and moist. NECK: Supple. Trachea midline. CARDIOVASCULAR: Regular rate and rhythm. S1, S2 noted. No murmur appreciated. RESPIRATORY: No accessory muscle use. Clear to auscultation. Breath sounds equal bilaterally. GASTROINTESTINAL: Abdomen soft, non-tender, nondistended. Normoactive bowel sounds x4. MUSCULOSKELETAL: No obvious deformities. Extremities without clubbing, cyanosis , or edema. NEUROLOGICAL: Awake and alert. No obvious cranial nerve deficits. Motor grossly within normal limits. 5/5 muscle strength in bilateral upper and lower extremities. Normal speech. PSYCHIATRIC: Appropriate mood and affect; insight and judgment normal. Results - Labs CBC & Chem 7: 02/15/18 02:05 02/15/18 02:05 Labs: Laboratory Results - last 24 hr 02/15/18 02/15/18 02/15/18 02:05 02:05 02:05 CBC w Diff Auto diff final WBC 4.8 RBC 4.46 L Hgb 11.4 L Hct 34.8 L MCV 78.1 L MCH 25.5 L MCHC 32.6 RDW 19.9 H Plt Count 149 L MPV 8.1 Neut % (Auto) 54.7 Lymph % (Auto) 24.7 [place] % (Auto) 18.1 H Eos % (Auto) 2.1 Baso % (Auto) 0.4 Neut # (Auto) 2.6 Lymph # (Auto) 1.2 [place] # (Auto) 0.9 Eos # (Auto) 0.1 Baso # (Auto) 0.0 WBC Differential . Differential Comment . Sodium 146 H Potassium 3.4 L D Chloride 109 H Carbon Dioxide 28.0 Anion Gap 9 BUN 9 Creatinine 0.63 Estimated GFR Greater than 89 POC Glucose Random Glucose 97 Calcium 7.3 L* Calcium Adj for Albumin 7.0 L* Magnesium 1.9 Total Bilirubin 0.5 AST 399 H ALT 348 H Alkaline Phosphatase 298 H Total Protein 7.8 Albumin 3.1 L Lipase 858 H Urine Color Urine Clarity Urine pH Ur Specific [place] Urine Protein Urine Glucose (UA) Urine Ketones Urine Occult Blood Urine Nitrate Urine Bilirubin Urine Urobilinogen Ur Leukocyte Esterase Urine RBC Urine WBC Ur Squamous Epith Cells Calcium Oxalate Crystal Urine Mucus Micro UA Comment Ur Microscopic Review Urine Culture Comments Urine Opiates Screen Ur Barbiturates Screen Carbamazepine 3.2 L Ur Amphetamines Screen U Benzodiazepines Scrn Urine Cocaine Screen U Cannabinoids Screen Serum Alcohol 313 H 02/15/18 02/15/18 02/15/18 04:05 04:05 08:35 CBC w Diff WBC RBC Hgb Hct MCV MCH MCHC RDW Plt Count MPV Neut % (Auto) Lymph % (Auto) [place] % (Auto) Eos % (Auto) Baso % (Auto) Neut # (Auto) Lymph # (Auto) [place] # (Auto) Eos # (Auto) Baso # (Auto) WBC Differential Differential Comment Sodium Potassium Chloride Carbon Dioxide Anion Gap BUN Creatinine Estimated GFR POC Glucose 123 H Random Glucose Calcium Calcium Adj for Albumin Magnesium Total Bilirubin AST ALT Alkaline Phosphatase Total Protein Albumin Lipase Urine Color Shira H Urine Clarity Clear Urine pH 6.0 Ur Specific [place] 1.025 Urine Protein Negative Urine Glucose (UA) Negative Urine Ketones Trace H Urine Occult Blood Negative Urine Nitrate Negative Urine Bilirubin Negative Urine Urobilinogen 1.0 Ur Leukocyte Esterase Negative Urine RBC 0-3 Urine WBC 0-5 Ur Squamous Epith Cells 0-5 Calcium Oxalate Crystal Few H Urine Mucus Moderate H Micro UA Comment Culture not ind Ur Microscopic Review Microscopic reviewed Urine Culture Comments Culture not ind Urine Opiates Screen Neg Ur Barbiturates Screen Neg Carbamazepine Ur Amphetamines Screen Neg U Benzodiazepines Scrn Pos H Urine Cocaine Screen Pos H U Cannabinoids Screen Pos H Serum Alcohol - Imaging Impressions Chest X-Ray 02/15/18 01:27 CONCLUSION: Negative examination. Foot X-Ray 02/15/18 03:05 CONCLUSION: Prior trauma. Osteopenia. Abdomen/Pelvis CT 02/15/18 03:22 CONCLUSION: 1. Mild wall thickening involving multiple loops of proximal small bowel without dilatation. 2. Mild stranding of the root of the mesentery. This could relate to venous congestion secondary to the patient's underlying liver disease. 3. Cirrhosis. 4. Long-term stable mildly enlarged retroperitoneal lymph nodes. Caprini VTE Risk Assessment Caprini VTE Risk Assessment: No/Low Risk (score <= 1) Caprini Risk Assessment Model: Point Value = 1 Point Value = 2 Point Value = 3 Point Value = 5 Age 41-60 Minor surgery BMI > 25 kg/m2 Swollen legs Varicose veins or History of unexplained or recurrent spontaneous Oral contraceptives or hormone replacement Sepsis (< 1 month) Serious lung disease, including pneumonia (< 1 month) Abnormal pulmonary function Acute myocardial infarction Congestive heart failure (< 1 month) History of inflammatory bowel disease Medical patient at bed rest Age 61-74 Arthroscopic surgery Major open surgery (> 45 min) Laparoscopic surgery (> 45 min) Malignancy Confined to bed (> 72 hours) Immobilizing plaster cast Central venous access Age >= 75 History of VTE Family history of VTE Factor V Leiden Prothrombin [id number] Lupus anticoagulant Anticardiolipin antibodies Elevated serum homocysteine Heparin-induced thrombocytopenia Other congenital or acquired thrombophilia Stroke (< 1 month) Elective arthroplasty Hip, pelvis, or leg fracture Acute spinal cord injury (< 1 month) Prophylaxis Regimen: Total Risk Factor Score Risk Level Prophylaxis Regimen 0-1 Low Early ambulation 2 Moderate Order ONE of the following: *Sequential Compression Device (SCD) *Heparin 5000 units SQ BID 3-4 Higher Order ONE of the following medications: *Heparin 5000 units SQ TID *Enoxaparin/Lovenox 40 mg SQ daily (WT < 150 kg, CrCl > 30 mL/min) *Enoxaparin/Lovenox 30 mg SQ daily (WT < 150 kg, CrCl > 10-29 mL/min) *Enoxaparin/Lovenox 30 mg SQ BID (WT < 150 kg, CrCl > 30 mL/min) AND/OR *Sequential Compression Device (SCD) 5 or more Highest Order ONE of the following medications: *Heparin 5000 units SQ TID (Preferred with Epidurals) *Enoxaparin/Lovenox 40 mg SQ daily (WT < 150 kg, CrCl > 30 mL/min) *Enoxaparin/Lovenox 30 mg SQ daily (WT < 150 kg, CrCl > 10-29 mL/min) *Enoxaparin/Lovenox 30 mg SQ BID (WT < 150 kg, CrCl > 30 mL/min) AND *Sequential Compression Device (SCD) Assessment and Plan - Assessment (1) Acute pancreatitis Code(s): K85.90 - Acute pancreatitis without necrosis or infection, unspecified Status: Acute - Plan 42-year-old male patient with Acute on chronic pancreatitis Transaminitis History of Hepatitis C, untreated History of chronic alcoholism -Patient presented with abdominal pain times 3 days with associated nausea and vomiting. -Abdominal/pelvis CT reviewed showing mild wall thickening involving multiple loops of proximal small bowel without dilatation. Mild stranding of the root of the mesentery. Cirrhosis. -Gastroenterology has been consulted. Input and recommendations pending. -Records requested from previous hospitalization at last month, patient is stating he has some type of carcinoma to his liver. I do not find any such records in our system. -LFTs are elevated but decreased from previous labs likely secondary to his Hepatitis and acute pancreatitis. Will continue to monitor, follow in AM. -Lipase in the 800's. Will continue IVF. Rest bowel. Control pain, Morphine IV as needed for pain. Repeat in am. -Continue Protonix. -Supportive care. Hypernatremia Hypocalcemia -Likely secondary to poor nutrition and alcohol. -Replace calcium as ordered. Recheck level in am. -Change IVF from NS to 1/2 100 ml/hr. -Follow labs in am. History of seizures, secondary to alcohol abuse -Continue home Tegretol. Level 3.2. It is questionable whether patient has been taking his prescribed medications. -Continue to monitor. Seizure precautions. -Requested records from prior hospitalization, patient states an MRI and EEG were done last month. Does not follow with a neurologist. History of alcoholism, active abuse --Encouraged cessation. Patient states that he wants to stop drinking alcohol. Has submitted some local support group. Monitor for any withdrawals. Seizure precautions. Continue home Tegretol. -Placed on CIWA protocol. Added thiamine and folic acid and multivitamins. Substance abuse -Toxicology screen noted positive for cannabis, benzodiazepines as well as cocaine. -Patient denies use of any cocaine although + on tox screen. Patient encouraged cessation. DVT prophylaxis: SCDs.
[2018-02-15] MEDS ORDERED: Calcium Chloride Inj 1 GM in Dextrose 5% in Water Inj 100 ML IV.SIG ONE ×2 (10:29)
[2018-02-15] MEDS: Sodium Chloride 0.45 % Inj 1,000 ML IV.CONT SCH ×2 (12:06→22:15)
[2018-02-15] MEDS: Ibuprofen 400 MG Tablet PO PRN (14:05)
[2018-02-15] MEDS: chlordiazePOXIDE 25 MG Capsule PO SCH ×2 (17:46→23:49)
--- NOTE | 2018-02-15 20:16 | MB ---
cc: Meliton Barkley MD,Johnie GRANADO DATE: 02/15/2018 PATIENT OF: Johnie Curry Jr., MD REASON FOR CONSULTATION: Elevated liver function tests, history of hepatitis C, pancreatitis. HISTORY OF PRESENT ILLNESS: Mr. Morrow is a 42-year-old gentleman with heavy history of alcohol use, apparently homeless with a previous history of hepatitis C and liver cirrhosis, who came to the emergency room with abdominal pain for 3-4 days. Workup has revealed evidence of pancreatitis. He says he has been in and out of different hospitals. More recently, he was in [facility]. He says his got a letter stating that he may have cancer. We have not been able to verify this. Efforts are in progress to see if any previous records can be located. Currently, he is complaining of abdominal pain. He seems very sleepy and drowsy and is asking for pain medicines. REVIEW OF SYSTEMS: No hematemesis or hematochezia. The patient is icteric. The patient has grade 2-3 encephalopathy. PAST MEDICAL HISTORY: Anxiety disorder, chronic recurrent pancreatitis, hepatitis C, depression, seizure disorder. PAST SURGICAL HISTORY: Unknown. SOCIAL HISTORY: The patient does drink alcohol. Substance abuse positive for marijuana and cocaine. FAMILY HISTORY: Noncontributory. LABORATORY DATA: Reveal hemoglobin 11.4. Creatinine 0.63, AST 399, ALT 348, total bilirubin 0.5, lipase 858. A CT of the abdomen and pelvis shows some nonspecific dilation of the loops of the small bowel, liver cirrhosis, mildly enlarged retroperitoneal lymphadenopathy. IMPRESSION: 1. Hepatitis C. 2. Liver cirrhosis. 3. Alcohol withdrawal. RECOMMENDATIONS: The patient is currently in the ICU for close monitoring for DTs and for withdrawal. He is asking for pain medicines. This has been deferred to the primary care service. Can give a clear liquid diet if tolerated. Monitor for alcohol withdrawal. Additional labs including alpha fetoprotein have been ordered. MRI of the liver has been ordered. Await records from the other hospital. Thank you for this referral. MD RHODA Knight/agnes , 05:25 PM , 05:32 PM
[2018-02-15] MEDS: carBAMazepine 100 MG Chewable Tablets PO SCH (23:49)
[2018-02-16] MEDS: Morphine Inj 4 MG/ML Vial IV.PUSH PRN ×3 (02:02→10:18)
[2018-02-16 05:26] LABS: Baso % (Auto) 0.7 % (0.0-2.0); Eos % (Auto) 1.9 % (0.0-4.0); Hematocrit 31.8 % (39.0-51.0); Lymph # (Auto) 0.7 th/mm3 (1.0-4.8); Lymph % (Auto) 30.4 % (9.0-44.0); Mean Corpuscular HGB Conc 31.3 % (32.0-36.0); Mean Corpuscular Hemoglobin 24.3 pg (27.0-34.0); Mean Corpuscular Volume 77.7 fL (80.0-100.0); Mono # (Auto) 0.3 th/mm3 (0.0-0.9); Neut # (Auto) 1.4 th/mm3 (1.8-7.7); Platelet Count 93 th/mm3 (150-450); Red Cell Distribution Width 19.4 % (11.6-17.2); White Blood Count 2.4 th/mm3 (4.0-11.0)
[2018-02-16 05:34] LABS: Chloride 105 meq/L (98-107); Potassium 3.4 meq/L (3.5-5.1); Sodium 142 meq/L (136-145)
[2018-02-16 05:44] LABS: Alanine Aminotransferase 324 U/L (12-78); Albumin 2.7 g/dL (3.4-5.0); Anion Gap 9 meq/L (5-15); Aspartate Aminotransferase 448 U/L (15-37); Blood Urea Nitrogen 9 mg/dL (7-18); Calcium 7.4 mg/dL (8.5-10.1); Carbon Dioxide 28.5 meq/L (21.0-32.0); Glomerular Filtration Rate Greater Than 89 mL/min (>89); Glucose,Random 73 mg/dL (74-106); Lipase 847 U/L (73-393); Total Protein 6.6 g/dL (6.4-8.2)
[2018-02-16 05:49] LABS: Alkaline Phosphatase 315 U/L (45-117)
[2018-02-16] MEDS: Pantoprazole Inj 40 MG Vial IV.PUSH SCH ×2 (06:03→15:09)
[2018-02-16] MEDS: chlordiazePOXIDE 25 MG Capsule PO SCH ×4 (06:03→23:38)
[2018-02-16 06:06] LABS: Ovalocytes 1+; Platelet Morphology Normal (Normal)
[2018-02-16] MEDS: carBAMazepine 100 MG Chewable Tablets PO SCH ×3 (08:05→17:20)
[2018-02-16] MEDS: Multivitamin/Minerals Therapeutic Tablet PO SCH (08:06)
[2018-02-16] MEDS: Folic Acid 1 MG Tablet PO SCH (08:06)
[2018-02-16] MEDS: Sodium Chloride 0.45 % Inj 1,000 ML IV.CONT SCH ×4 (08:10→20:59)
[2018-02-16] MEDS ORDERED: Thiamine Inj 100 MG in Sodium Chlor 0.9% Inj 100 ML IV.SIG SCH (09:00)
[2018-02-16] MEDS: Senna/Docusate Sodium 8.6/50 MG Tablet PO SCH ×2 (09:07→21:00)
[2018-02-16] MEDS: Thiamine Inj 100 MG in Sodium Chlor 0.9% Inj 100 ML IV.SIG SCH (10:18)
[2018-02-16] MEDS ORDERED: chlordiazePOXIDE 25 MG Capsule PO SCH (14:02)
--- NOTE | 2018-02-16 17:06 | P.PNGI ---
Subjective Interval history: Feeling better today. PO pain meds working Physical Exam Vital signs: Vital Signs 02/15/18 17:55 02/15/18 19:20 02/15/18 20:00 Temperature 97.5 F L Pulse Rate 83 Respiratory Rate 18 Blood Pressure 131/73 Pulse Oximetry 94 L 97 97 02/15/18 22:00 02/16/18 00:00 02/16/18 08:00 Temperature 95.8 F L 95.8 F L 97.0 F L Pulse Rate 76 76 57 L Respiratory Rate 18 18 20 Blood Pressure 107/56 L 107/56 L 116/65 Pulse Oximetry 96 96 95 02/16/18 12:00 Temperature 98.7 F Pulse Rate 76 Respiratory Rate 20 Blood Pressure 115/75 Pulse Oximetry 96 Intake & Output 02/15/18 02/16/18 02/16/18 18:59 06:59 18:59 Intake Total 110 / 110 1120 / 1120 1001 / 1001 Output Total 750 / 750 Balance 110 / 110 370 / 370 1001 / 1001 Weight 90.7 kg Intake: IV 110 / 110 1000 / 1000 1001 / 1001 1/2 Normal Saline Inj 1,000 ML 1000 / 1000 900 / 900 @ 100 mls/hr IV.CONT .Q10H EVAN Rx#:[id number] Calcium Chloride Inj 1 GM In 110 / 110 D5W Inj 100 ML @ 110 mls/hr IV. SIG ONCE ONE Rx#:[id number] Thiamine Inj 100 MG In NS Inj 101 / 101 100 ML @ 100 mls/hr IV.SIG DAILY EVAN Rx#:[id number] Oral 120 / 120 Output: Urine 750 / 750 - Constitutional no acute distress - Routine HEENT Exam Head: Present: normocephalic Eye: Present: EOMI ENT: Present: mucous membranes moist - Routine Respiratory Exam Present: CTA bilaterally - Routine Cardiovascular Exam Present: RRR - Routine Abdominal Exam Present: soft, normoactive bowel sounds Results - Labs CBC & Chem 7: 02/16/18 04:45 02/16/18 04:45 Laboratory Results - last 24 hr 02/15/18 02/15/18 02/16/18 18:29 19:05 04:45 CBC w Diff Slide review pending WBC 2.4 L RBC 4.10 L Hgb 10.0 L Hct 31.8 L MCV 77.7 L MCH 24.3 L MCHC 31.3 L RDW 19.4 H Plt Count 93 L D MPV 8.0 Neut % (Auto) 56.0 Lymph % (Auto) 30.4 [place] % (Auto) 11.0 H Eos % (Auto) 1.9 Baso % (Auto) 0.7 Neut # (Auto) 1.4 L Lymph # (Auto) 0.7 L [place] # (Auto) 0.3 Eos # (Auto) 0.0 Baso # (Auto) 0.0 WBC Differential . Diff Scan Auto diff confirmed Differential Comment . Platelet Estimate Low L Platelet Morphology Normal Ovalocytes 1+ H Sodium Potassium Chloride Carbon Dioxide Anion Gap BUN Creatinine Estimated GFR POC Glucose 88 Random Glucose Calcium Calcium Adj for Albumin Total Bilirubin AST ALT Alkaline Phosphatase Ammonia Total Protein Albumin Lipase Tumor Marker AFP 3.7 02/16/18 02/16/18 02/16/18 04:45 08:09 11:47 CBC w Diff WBC RBC Hgb Hct MCV MCH MCHC RDW Plt Count MPV Neut % (Auto) Lymph % (Auto) [place] % (Auto) Eos % (Auto) Baso % (Auto) Neut # (Auto) Lymph # (Auto) [place] # (Auto) Eos # (Auto) Baso # (Auto) WBC Differential Diff Scan Differential Comment Platelet Estimate Platelet Morphology Ovalocytes Sodium 142 Potassium 3.4 L Chloride 105 Carbon Dioxide 28.5 Anion Gap 9 BUN 9 Creatinine 0.55 L Estimated GFR Greater than 89 POC Glucose 83 133 H Random Glucose 73 L Calcium 7.4 L* Calcium Adj for Albumin 8.4 L D Total Bilirubin 1.3 H AST 448 H ALT 324 H Alkaline Phosphatase 315 H Ammonia Total Protein 6.6 D Albumin 2.7 L Lipase 847 H Tumor Marker AFP 02/16/18 13:30 CBC w Diff WBC RBC Hgb Hct MCV MCH MCHC RDW Plt Count MPV Neut % (Auto) Lymph % (Auto) [place] % (Auto) Eos % (Auto) Baso % (Auto) Neut # (Auto) Lymph # (Auto) [place] # (Auto) Eos # (Auto) Baso # (Auto) WBC Differential Diff Scan Differential Comment Platelet Estimate Platelet Morphology Ovalocytes Sodium Potassium Chloride Carbon Dioxide Anion Gap BUN Creatinine Estimated GFR POC Glucose Random Glucose Calcium Calcium Adj for Albumin Total Bilirubin AST ALT Alkaline Phosphatase Ammonia 48 H Total Protein Albumin Lipase Tumor Marker AFP Assessment and Plan - Plan Feeling better today, moved out of ICU. Monitor labs. MRI liver pending. Liquid diet.
--- NOTE | 2018-02-16 17:19 | P.PNIM ---
Subjective Interval history: 42-year-old male who was seen in follow-up for elevated lipase level, elevated liver enzymes, chronic alcohol abuse. Patient is resting comfortably in bed at this time. Seems to be mildly somnolent and slowed speech. CIWA scores have been below 4 and patient has not required any Ativan in 24 hours. There is no signs of active detox at this time. Patient states that he is tolerating liquids. He continues to have abdominal pain. Vital signs are stable. Patient remains afebrile. Physical Exam Vital signs: Vital Signs 02/15/18 17:55 02/15/18 19:20 02/15/18 20:00 Temperature 97.5 F L Pulse Rate 83 Respiratory Rate 18 Blood Pressure 131/73 Pulse Oximetry 94 L 97 97 02/15/18 22:00 02/16/18 00:00 02/16/18 08:00 Temperature 95.8 F L 95.8 F L 97.0 F L Pulse Rate 76 76 57 L Respiratory Rate 18 18 20 Blood Pressure 107/56 L 107/56 L 116/65 Pulse Oximetry 96 96 95 02/16/18 12:00 02/16/18 16:00 Temperature 98.7 F 97.8 F Pulse Rate 76 66 Respiratory Rate 20 20 Blood Pressure 115/75 128/85 Pulse Oximetry 96 95 Intake & Output 02/15/18 02/16/18 02/16/18 18:59 06:59 18:59 Intake Total 110 / 110 1120 / 1120 1001 / 1001 Output Total 750 / 750 Balance 110 / 110 370 / 370 1001 / 1001 Weight 90.7 kg Intake: IV 110 / 110 1000 / 1000 1001 / 1001 1/2 Normal Saline Inj 1,000 ML 1000 / 1000 900 / 900 @ 100 mls/hr IV.CONT .Q10H EVAN Rx#:[id number] Calcium Chloride Inj 1 GM In 110 / 110 D5W Inj 100 ML @ 110 mls/hr IV. SIG ONCE ONE Rx#:[id number] Thiamine Inj 100 MG In NS Inj 101 / 101 100 ML @ 100 mls/hr IV.SIG DAILY EVAN Rx#:[id number] Oral 120 / 120 Output: Urine 750 / 750 Narrative: GENERAL: Well-developed, well-nourished, in no acute distress. alert and orientated, mildly lethargic HEENT: Head is normocephalic without any lesions or masses noted. Facial features are symmetric. Eyes: Extraocular muscles are intact. Conjunctivae were clear. NECK: Supple without any masses. Trachea midline no deviation. No JVD, CARDIAC: Regular rhythm, regular rate. S1/S2 are heard. No murmurs gallops or rubs. LUNGS: Clear to auscultation bilaterally. No wheeze, rhonchi or rales. No use of accessory muscles on inspiration or expiration. ABDOMEN: Soft, nontender. Nondistended. Bowel sounds heard in all 4 quadrants. No organomegaly or masses. Negative rebound, negative guarding EXTREMITIES: No edema, pulses are equal bilaterally. No cyanosis or clubbing NEUROLOGY: Mood and affect appear appropriate. Cranial nerves II through XII grossly intact. Moving all extremities, speech is clear Results - Labs CBC & Chem 7: 02/16/18 04:45 02/16/18 04:45 Laboratory Results - last 24 hr 02/15/18 02/15/18 02/16/18 18:29 19:05 04:45 CBC w Diff Slide review pending WBC 2.4 L RBC 4.10 L Hgb 10.0 L Hct 31.8 L MCV 77.7 L MCH 24.3 L MCHC 31.3 L RDW 19.4 H Plt Count 93 L D MPV 8.0 Neut % (Auto) 56.0 Lymph % (Auto) 30.4 Dickenson % (Auto) 11.0 H Eos % (Auto) 1.9 Baso % (Auto) 0.7 Neut # (Auto) 1.4 L Lymph # (Auto) 0.7 L Dickenson # (Auto) 0.3 Eos # (Auto) 0.0 Baso # (Auto) 0.0 WBC Differential . Diff Scan Auto diff confirmed Differential Comment . Platelet Estimate Low L Platelet Morphology Normal Ovalocytes 1+ H Sodium Potassium Chloride Carbon Dioxide Anion Gap BUN Creatinine Estimated GFR POC Glucose 88 Random Glucose Calcium Calcium Adj for Albumin Total Bilirubin AST ALT Alkaline Phosphatase Ammonia Total Protein Albumin Lipase Tumor Marker AFP 3.7 02/16/18 02/16/18 02/16/18 04:45 08:09 11:47 CBC w Diff WBC RBC Hgb Hct MCV MCH MCHC RDW Plt Count MPV Neut % (Auto) Lymph % (Auto) Dickenson % (Auto) Eos % (Auto) Baso % (Auto) Neut # (Auto) Lymph # (Auto) Dickenson # (Auto) Eos # (Auto) Baso # (Auto) WBC Differential Diff Scan Differential Comment Platelet Estimate Platelet Morphology Ovalocytes Sodium 142 Potassium 3.4 L Chloride 105 Carbon Dioxide 28.5 Anion Gap 9 BUN 9 Creatinine 0.55 L Estimated GFR Greater than 89 POC Glucose 83 133 H Random Glucose 73 L Calcium 7.4 L* Calcium Adj for Albumin 8.4 L D Total Bilirubin 1.3 H AST 448 H ALT 324 H Alkaline Phosphatase 315 H Ammonia Total Protein 6.6 D Albumin 2.7 L Lipase 847 H Tumor Marker AFP 02/16/18 13:30 CBC w Diff WBC RBC Hgb Hct MCV MCH MCHC RDW Plt Count MPV Neut % (Auto) Lymph % (Auto) Dickenson % (Auto) Eos % (Auto) Baso % (Auto) Neut # (Auto) Lymph # (Auto) Dickenson # (Auto) Eos # (Auto) Baso # (Auto) WBC Differential Diff Scan Differential Comment Platelet Estimate Platelet Morphology Ovalocytes Sodium Potassium Chloride Carbon Dioxide Anion Gap BUN Creatinine Estimated GFR POC Glucose Random Glucose Calcium Calcium Adj for Albumin Total Bilirubin AST ALT Alkaline Phosphatase Ammonia 48 H Total Protein Albumin Lipase Tumor Marker AFP Assessment and Plan - Assessment (1) Acute pancreatitis Code(s): K85.90 - Acute pancreatitis without necrosis or infection, unspecified Status: Acute - Plan Acute on chronic pancreatitis -Likely secondary to chronic alcohol abuse -Patient clinically is improving, no longer requiring IV pain medication, is tolerating p.o. pain meds -Continue full iquid diet and advance as tolerated -Continue to trend lipase level -Continue IV fluids Chronic alcohol abuse with acute alcohol intoxication -Patient on [facility] protocol -Withdrawal/seizure precautions -Patient is not required any Ativan in over 24 hours -Patient was started on Librium 50 mg every 6 hours, however he is very lethargic. Will decrease to 25 mg every 6 hours -Continue thiamine and folic acid -Ammonia level was elevated -Start lactulose 30 mL's daily, continue monitor ammonia level History of hepatitis C, untreated with transaminitis -GI consulted for further recommendations -As indicated that patient was hospitalized at [facility] last month and patient indicating that there is some sort of carcinoma in his liver -MRI of the liver is pending -Awaiting outside records for further evaluation Electrolyte abnormalities with hypernatremia, Hypocalcemia -Likely secondary to poor nutrition and alcohol. -Continue to monitor and replete as needed Polysubstance abuse -Toxicology screen noted positive for cannabis, benzodiazepines as well as cocaine. -Patient was counseled on cessation DVT prophylaxis: -Sequential compression devices Discharge Planning: Discharge home in 24-48 hours depending on patient response to treatment, MRI results, clearance by GI
[2018-02-16] MEDS: LORazepam 1 MG Tablet PO PRN (21:06)
[2018-02-17] MEDS: Sodium Chloride 0.45 % Inj 1,000 ML IV.CONT SCH ×4 (03:50→17:53)
[2018-02-17] MEDS: Pantoprazole Inj 40 MG Vial IV.PUSH SCH ×2 (03:52→17:54)
[2018-02-17] MEDS: LORazepam 1 MG Tablet PO PRN ×3 (03:52→20:30)
[2018-02-17] MEDS: chlordiazePOXIDE 25 MG Capsule PO SCH ×3 (05:30→17:49)
[2018-02-17 07:03] LABS: Chloride 104 meq/L (98-107); Potassium 3.6 meq/L (3.5-5.1); Sodium 140 meq/L (136-145)
[2018-02-17 07:08] LABS: Calcium 7.7 mg/dL (8.5-10.1)
[2018-02-17 07:09] LABS: Albumin 2.8 g/dL (3.4-5.0); Anion Gap 6 meq/L (5-15); Blood Urea Nitrogen 4 mg/dL (7-18); Carbon Dioxide 29.7 meq/L (21.0-32.0); Glucose,Random 94 mg/dL (74-106); Lipase 425 U/L (73-393)
[2018-02-17 07:12] LABS: Alanine Aminotransferase 334 U/L (12-78); Aspartate Aminotransferase 447 U/L (15-37); Glomerular Filtration Rate Greater Than 89 mL/min (>89)
[2018-02-17 07:13] LABS: Total Protein 6.9 g/dL (6.4-8.2)
[2018-02-17 07:15] LABS: Alkaline Phosphatase 350 U/L (45-117)
--- NOTE | 2018-02-17 08:55 | P.PNIM ---
Subjective Interval history: 42-year-old male who is seen examined today for follow-up on alcohol intoxication/withdrawal, pancreatitis, elevated liver enzymes. Patient states that he had a rough night last night. Patient had difficult time sleeping. Indicating that he is starting to go through withdrawal more. Records indicate that his see was score did increase significantly and patient did require Ativan during the night. Discussed with the patient that his ammonia level is getting worse. He is tolerating liquid diet at this time without any adverse effects. Vital signs are stable. Patient remains afebrile. Physical Exam Vital signs: Vital Signs 02/16/18 12:00 02/16/18 16:00 02/16/18 20:00 Temperature 98.7 F 97.8 F 97.9 F Pulse Rate 76 66 68 Respiratory Rate 20 20 18 Blood Pressure 115/75 128/85 126/75 Pulse Oximetry 96 95 97 02/17/18 00:00 02/17/18 05:39 Temperature 95.5 F L 96.5 F L Pulse Rate 69 63 Respiratory Rate 18 20 Blood Pressure 124/82 117/78 Pulse Oximetry 96 100 Intake & Output 02/16/18 02/17/18 02/17/18 18:59 06:59 18:59 Intake Total 1001 / 1001 2815 / 2815 Output Total 800 / 800 1100 / 1100 Balance 201 / 201 1715 / 1715 Weight 92.5 kg Intake: IV 1001 / 1001 2695 / 2695 1/2 Normal Saline Inj 1,000 ML 900 / 900 2695 / 2695 @ 100 mls/hr IV.CONT .Q10H EVAN Rx#:[id number] Thiamine Inj 100 MG In NS Inj 101 / 101 100 ML @ 100 mls/hr IV.SIG DAILY EVAN Rx#:[id number] Oral 120 / 120 Output: Urine 800 / 800 1100 / 1100 Other: Date of Last Bowel Movement 02/16/18 02/16/18 # Bowel Movements 1 Narrative: GENERAL: Well-developed, well-nourished, in no acute distress. alert and orientated, mildly lethargic HEENT: Head is normocephalic without any lesions or masses noted. Facial features are symmetric. Eyes: Extraocular muscles are intact. Conjunctivae were clear. NECK: Supple without any masses. Trachea midline no deviation. No JVD, CARDIAC: Regular rhythm, regular rate. S1/S2 are heard. No murmurs gallops or rubs. LUNGS: Clear to auscultation bilaterally. No wheeze, rhonchi or rales. No use of accessory muscles on inspiration or expiration. ABDOMEN: Soft, nontender. Nondistended. Bowel sounds heard in all 4 quadrants. No organomegaly or masses. Negative rebound, negative guarding EXTREMITIES: No edema, pulses are equal bilaterally. No cyanosis or clubbing NEUROLOGY: Mood and affect appear appropriate. Cranial nerves II through XII grossly intact. Moving all extremities, speech is clear Results - Labs CBC & Chem 7: 02/16/18 04:45 02/17/18 06:10 Laboratory Results - last 24 hr 02/16/18 02/16/18 02/17/18 11:47 13:30 06:10 Sodium 140 Potassium 3.6 Chloride 104 Carbon Dioxide 29.7 Anion Gap 6 BUN 4 L Creatinine 0.65 Estimated GFR Greater than 89 POC Glucose 133 H Random Glucose 94 Calcium 7.7 L Total Bilirubin 2.2 H AST 447 H ALT 334 H Alkaline Phosphatase 350 H Ammonia 48 H Total Protein 6.9 Albumin 2.8 L Lipase 425 H 02/17/18 06:10 Sodium Potassium Chloride Carbon Dioxide Anion Gap BUN Creatinine Estimated GFR POC Glucose Random Glucose Calcium Total Bilirubin AST ALT Alkaline Phosphatase Ammonia 93 H Total Protein Albumin Lipase Assessment and Plan - Assessment (1) Acute pancreatitis Code(s): K85.90 - Acute pancreatitis without necrosis or infection, unspecified Status: Acute - Plan Chronic alcohol abuse, acute alcohol intoxication with acute alcohol withdrawal -Patient on [facility] protocol -Withdrawal/seizure precautions -Librium 25 mg every 6 hours -Continue thiamine and folic acid -Ammonia level was elevated and worsening -Increase lactulose 30 mL's twice daily, continue monitor ammonia level Acute on chronic pancreatitis, improving -Likely secondary to chronic alcohol abuse -Patient clinically is improving, no longer requiring IV pain medication, is tolerating p.o. pain meds -Continue full liquid diet and advance as tolerated -Continue to trend lipase level -Continue IV fluids History of hepatitis C, untreated with transaminitis -GI consulted for further recommendations -As indicated that patient was hospitalized at [facility] last month and patient indicating that there is some sort of carcinoma in his liver -MRI of the liver is pending -Awaiting outside records for further evaluation Electrolyte abnormalities with hyponatremia, Hypocalcemia -Likely secondary to poor nutrition and alcohol. -Continue to monitor and replete as needed Pancytopenia -Likely secondary to liver disease, chronic alcohol use -Patient is supposed to follow-up with outpatient retort engineer Polysubstance abuse -Toxicology screen noted positive for cannabis, benzodiazepines as well as cocaine. -Patient was counseled on cessation DVT prophylaxis: -Sequential compression devices Discharge Planning: Discharge home in 24-48 hours depending on patient response to treatment, MRI results, clearance by GI
[2018-02-17] MEDS: Multivitamin/Minerals Therapeutic Tablet PO SCH (09:25)
[2018-02-17] MEDS: Folic Acid 1 MG Tablet PO SCH (09:25)
[2018-02-17] MEDS: Senna/Docusate Sodium 8.6/50 MG Tablet PO SCH ×2 (09:25→20:19)
[2018-02-17] MEDS: carBAMazepine 100 MG Chewable Tablets PO SCH ×3 (09:25→17:49)
[2018-02-17] MEDS: Thiamine Inj 100 MG in Sodium Chlor 0.9% Inj 100 ML IV.SIG SCH (09:50)
[2018-02-17] MEDS ORDERED: Gadobutrol PF 10 MMOL/10 ML Vial (for RAD) IV.SIG ONE (12:30)
--- NOTE | 2018-02-17 13:41 | MR ---
EXAM DATE: 02/17/2018 1:14 PM EST AGE/SEX: 42 years / Male INDICATIONS: Liver mass. Cirrhosis. CLINICAL DATA: This is the patient's subsequent encounter. Patient reports that signs and symptoms h ave been present for 2 days and indicates a pain score of 3/10. MEDICAL/SURGICAL HISTORY: Pancreatitis. Hypertension. Cirrhosis. ETOH abuse. Cholecystectom y. Left foot surgery. Right forearm tendon repair. COMPARISON: O, CT ABDOMEN & PELVIS W CONTRAST, 02/15/2018. [facility] [place], CT ABDOMEN & PELVIS W CONTRAST , 01/25/2013. . TECHNIQUE: Multiplanar, multisequence images of the abdomen were obtained prior to and following adm inistration of 9 ml Gadavist (gadobutrol) contrast as a single exam dose with dynamic multiphase tech nique. FINDINGS: Liver: The liver measures 18.5 cm. It demonstrates normal signal intensity without fat or iron deposi tion. There is an abnormal nodular contour with central atrophy are characteristic of cirrhosis. No f ocal liver lesion is appreciated. Portal and hepatic veins are patent. There is a recanalized paraumb ilical vein. Gallbladder: Gallbladder is absent. Spleen: Spleen is enlarged measuring 18 cm in length. No focal lesion is seen. Pancreas: Within normal limits. Adrenals: Within normal limits. Kidneys: Symmetric size and enhancement. No hydronephrosis or mass. Other: Aorta is nonaneurysmal. No lymphadenopathy is visualized. The remaining surrounding structur es demonstrate no acute abnormality. There are stable enlarged hepatoduodenal ligament region lymph n odes. There is no ascites. CONCLUSION: 1. Cirrhosis without a focal lesion identified. 2. Findings associated with portal hypertension include marked splenomegaly. There is no ascites. Al so related to the chronic liver disease are the chronically enlarged lymph nodes and bilateral gyneco mastia. Electronically signed by: Johann Parekh MD 02/17/2018 1:40 PM EST
--- NOTE | 2018-02-17 17:36 | P.PNGI ---
Subjective Interval history: Still with abdominal pain , asking for more pain meds. Physical Exam Vital signs: Vital Signs 02/16/18 20:00 02/17/18 00:00 02/17/18 05:39 Temperature 97.9 F 95.5 F L 96.5 F L Pulse Rate 68 69 63 Respiratory Rate 18 18 20 Blood Pressure 126/75 124/82 117/78 Pulse Oximetry 97 96 100 02/17/18 08:00 02/17/18 12:00 02/17/18 15:53 Temperature 97.3 F L 96.6 F L Pulse Rate 66 63 60 Respiratory Rate 18 18 18 Blood Pressure 121/67 120/73 126/80 Pulse Oximetry 98 96 99 Intake & Output 02/16/18 02/17/18 02/17/18 18:59 06:59 18:59 Intake Total 1001 / 1001 2815 / 2815 101 / 101 Output Total 800 / 800 1100 / 1100 250 / 250 Balance 201 / 201 1715 / 1715 -149 / -149 Weight 92.5 kg Intake: IV 1001 / 1001 2695 / 2695 101 / 101 1/2 Normal Saline Inj 1,000 ML 900 / 900 2695 / 2695 @ 100 mls/hr IV.CONT .Q10H EVAN Rx#:[id number] Thiamine Inj 100 MG In NS Inj 101 / 101 101 / 101 100 ML @ 100 mls/hr IV.SIG DAILY EVAN Rx#:[id number] Oral 120 / 120 Output: Urine 800 / 800 1100 / 1100 250 / 250 Other: Date of Last Bowel Movement 02/16/18 02/16/18 02/17/18 # Bowel Movements 1 - Constitutional no acute distress - Routine HEENT Exam Head: Present: normocephalic Eye: Present: EOMI, conjunctival icterus - Routine Respiratory Exam Present: CTA bilaterally - Routine Cardiovascular Exam Present: RRR - Routine Abdominal Exam Present: soft, normoactive bowel sounds Results - Labs CBC & Chem 7: 02/16/18 04:45 02/17/18 06:10 Laboratory Results - last 24 hr 02/17/18 02/17/18 06:10 06:10 Sodium 140 Potassium 3.6 Chloride 104 Carbon Dioxide 29.7 Anion Gap 6 BUN 4 L Creatinine 0.65 Estimated GFR Greater than 89 Random Glucose 94 Calcium 7.7 L Total Bilirubin 2.2 H AST 447 H ALT 334 H Alkaline Phosphatase 350 H Ammonia 93 H Total Protein 6.9 Albumin 2.8 L Lipase 425 H - Imaging Impressions Abdomen MRI 02/17/18 07:08 CONCLUSION: 1. Cirrhosis without a focal lesion identified. 2. Findings associated with portal hypertension include marked splenomegaly. There is no ascites. Also related to the chronic liver disease are the chronically enlarged lymph nodes and bilateral gynecomastia. Assessment and Plan - Plan Seen and examined, still with pain. Tolerating po liquids. MRI -ve for malignancy. Polysubstance abuse with ESLD. Advised against use of drugs and alcohol. Hep C treatment as outpatient. GI will sign off, reconsult as needed. Thank you
[2018-02-17] MEDS: Ibuprofen 400 MG Tablet PO PRN (20:18)
[2018-02-18] MEDS: Sodium Chloride 0.45 % Inj 1,000 ML IV.CONT SCH ×3 (00:15→15:23)
[2018-02-18] MEDS: chlordiazePOXIDE 25 MG Capsule PO SCH ×5 (00:15→23:21)
[2018-02-18] MEDS: LORazepam 1 MG Tablet PO PRN ×2 (04:23→11:24)
[2018-02-18] MEDS: Pantoprazole Inj 40 MG Vial IV.PUSH SCH ×2 (04:23→17:20)
[2018-02-18] MEDS: carBAMazepine 100 MG Chewable Tablets PO SCH ×3 (08:51→17:20)
[2018-02-18] MEDS: Multivitamin/Minerals Therapeutic Tablet PO SCH (08:52)
[2018-02-18] MEDS: Folic Acid 1 MG Tablet PO SCH (08:52)
[2018-02-18] MEDS: Senna/Docusate Sodium 8.6/50 MG Tablet PO SCH ×2 (08:52→23:22)
[2018-02-18] MEDS: Thiamine Inj 100 MG in Sodium Chlor 0.9% Inj 100 ML IV.SIG SCH (08:53)
[2018-02-18 09:57] LABS: Chloride 104 meq/L (98-107); Potassium 3.3 meq/L (3.5-5.1); Sodium 140 meq/L (136-145)
[2018-02-18 10:00] LABS: Calcium 7.6 mg/dL (8.5-10.1)
[2018-02-18 10:01] LABS: Albumin 2.6 g/dL (3.4-5.0); Anion Gap 7 meq/L (5-15); Blood Urea Nitrogen 3 mg/dL (7-18); Carbon Dioxide 29.4 meq/L (21.0-32.0); Glucose,Random 110 mg/dL (74-106); Lipase 577 U/L (73-393)
[2018-02-18 10:03] LABS: Alanine Aminotransferase 309 U/L (12-78)
[2018-02-18 10:04] LABS: Aspartate Aminotransferase 402 U/L (15-37); Glomerular Filtration Rate Greater Than 89 mL/min (>89)
[2018-02-18 10:05] LABS: Total Protein 6.7 g/dL (6.4-8.2)
[2018-02-18 10:06] LABS: Alkaline Phosphatase 336 U/L (45-117)
--- NOTE | 2018-02-18 13:51 | P.PNIM ---
Subjective Interval history: 42-year-old male who is seen examined today for follow-up on pancreatitis, alcohol withdrawal. Patient resting comfortably. He is talking probably without any slurred speech at this time. At the time evaluating the patient he had not required any Ativan since 4 AM this morning. Patient CIWA score has been varying rather significantly anywhere from 0-10. Nursing staff have notified me about this patient that he has been able to re-create symptoms in order to get a higher CIWA score in order to obtain Ativan. Last evening patient was requesting more pain medication than the oxycodone 10 mg. Upon evaluating the patient today is appearing much improved. I do not see any significant signs of withdrawal at this time. His eyes are quite dilated from the medication he is receiving. There is no palpable pain noted upon examination. Vital signs are fantastic without any signs of elevation or withdrawal. Patient remains afebrile. Physical Exam Vital signs: Vital Signs 02/17/18 15:53 02/17/18 20:00 02/18/18 00:00 Temperature 96.6 F L 96.5 F L 97.5 F L Pulse Rate 60 67 64 Respiratory Rate 18 20 20 Blood Pressure 126/80 123/72 123/77 Pulse Oximetry 99 98 97 02/18/18 08:00 02/18/18 12:00 Temperature 96.2 F L 97.0 F L Pulse Rate 66 70 Respiratory Rate 16 16 Blood Pressure 117/68 117/68 Pulse Oximetry 96 98 Intake & Output 02/17/18 02/18/18 02/18/18 18:59 06:59 18:59 Intake Total 1101 / 1101 955 / 955 101 / 101 Output Total 250 / 250 Balance 851 / 851 955 / 955 101 / 101 Weight 94.1 kg Intake: IV 1101 / 1101 955 / 955 101 / 101 1/2 Normal Saline Inj 1,000 ML 1000 / 1000 955 / 955 @ 100 mls/hr IV.CONT .Q10H EVAN Rx#:[id number] Thiamine Inj 100 MG In NS Inj 101 / 101 101 / 101 100 ML @ 100 mls/hr IV.SIG DAILY EVAN Rx#:[id number] Output: Urine 250 / 250 Other: Date of Last Bowel Movement 02/17/18 02/17/18 02/17/18 Narrative: GENERAL: Well-developed, well-nourished, in no acute distress. alert and orientated, mildly lethargic HEENT: Head is normocephalic without any lesions or masses noted. Facial features are symmetric. Eyes: Pupils are dilated. Extraocular muscles are intact. Conjunctivae were clear. No nystagmus were seen NECK: Supple without any masses. Trachea midline no deviation. No JVD, CARDIAC: Regular rhythm, regular rate. S1/S2 are heard. No murmurs gallops or rubs. LUNGS: Clear to auscultation bilaterally. No wheeze, rhonchi or rales. No use of accessory muscles on inspiration or expiration. ABDOMEN: Soft, nontender. Nondistended. Bowel sounds heard in all 4 quadrants. No organomegaly or masses. Negative rebound, negative guarding EXTREMITIES: No edema, pulses are equal bilaterally. No cyanosis or clubbing NEUROLOGY: Mood and affect appear appropriate. Cranial nerves II through XII grossly intact. Moving all extremities, speech is clear. No extremity tremors were appreciated Results - Labs CBC & Chem 7: 02/16/18 04:45 02/18/18 08:50 Laboratory Results - last 24 hr 02/18/18 02/18/18 08:50 08:50 Sodium 140 Potassium 3.3 L Chloride 104 Carbon Dioxide 29.4 Anion Gap 7 BUN 3 L Creatinine 0.71 Estimated GFR Greater than 89 Random Glucose 110 H Calcium 7.6 L Total Bilirubin 1.6 H AST 402 H ALT 309 H Alkaline Phosphatase 336 H Ammonia 53 H Total Protein 6.7 Albumin 2.6 L Lipase 577 H Assessment and Plan - Assessment (1) Acute pancreatitis Code(s): K85.90 - Acute pancreatitis without necrosis or infection, unspecified Status: Acute - Plan Chronic alcohol abuse, acute alcohol intoxication with acute alcohol withdrawal -Patient on CIWA protocol, patient with scores from 0-10 in the last 24 hours -Discontinue Ativan except for seizures -Withdrawal/seizure precautions -Librium 25 mg every 6 hours -Continue thiamine and folic acid -Ammonia level improving -lactulose 30 mL's twice daily, continue monitor ammonia level Possible acute on chronic pancreatitis, resolved -Likely secondary to chronic alcohol abuse -CT/MRIs do not indicate any acute changes with the pancreas to indicate pancreatitis -Patient clinically is improving, no longer requiring IV pain medication, patient does not have any palpable tenderness -Start to wean narcotic medication -Continue full liquid diet and advance as tolerated -Continue to trend lipase level -Continue IV fluids History of hepatitis C, untreated with transaminitis -GI consulted for further recommendations, who have signed off and recommending outpatient management -MRI of the liver was performed and indicated cirrhosis without any focal lesion. Findings associated with portal hypertension, splenomegaly. -Awaiting outside records for further evaluation Electrolyte abnormalities with hyponatremia, Hypocalcemia -Likely secondary to poor nutrition and alcohol. -Continue to monitor and replete as needed Pancytopenia -Likely secondary to liver disease, chronic alcohol use -Patient is supposed to follow-up with outpatient consulting manager Polysubstance abuse -Toxicology screen noted positive for cannabis, benzodiazepines as well as cocaine. -Patient was counseled on cessation DVT prophylaxis: -Sequential compression devices Discharge Planning: Anticipate discharge tomorrow
[2018-02-18 22:10] VITALS: O2SAT 96
[2018-02-19] MEDS: Sodium Chloride 0.45 % Inj 1,000 ML IV.CONT SCH ×2 (01:13→08:39)
[2018-02-19] MEDS: Pantoprazole Inj 40 MG Vial IV.PUSH SCH (04:45)
[2018-02-19] MEDS: chlordiazePOXIDE 25 MG Capsule PO SCH (06:07)
[2018-02-19] MEDS: Folic Acid 1 MG Tablet PO SCH (08:40)
[2018-02-19] MEDS: Multivitamin/Minerals Therapeutic Tablet PO SCH (08:41)
[2018-02-19] MEDS: carBAMazepine 100 MG Chewable Tablets PO SCH (08:41)
[2018-02-19] MEDS: Senna/Docusate Sodium 8.6/50 MG Tablet PO SCH (09:31)
[2018-02-19 09:34] VITALS: BP 111/70; PULSE 69; RESP 15; TEMP 96.8
--- NOTE | 2018-02-19 09:54 | P.DS ---
Date of admission: 02/15/18 03:24 Primary care physician: No Primary Care Physician Attending physician on discharge: Daylin Shepard Anticipated date of discharge: 02/19/18 Brief History from admission: This is a 42-year-old male patient with a known medical history of alcohol abuse , hepatitis C history as well as cirrhosis presented to the ED with complaints of severe abdominal pain times 3-4 days. Patient also admits that he has been nauseous as well as vomiting, although denies any coffee-ground emesis or hematemesis. Patient does admit to drinking 1/2 gallon of vodka per day for the last 3 years, has been abusing alcohol for many years prior to this. He states that he does have seizures associated with alcohol withdrawal and was recently hospitalized in [facility] roughly a month ago. He states at that time an MRI was done as well as an EEG and he was continued on his Tegretol. Patient is homeless, he states that he has been intermittently taking his medications and has been actively drinking. It should be noted that patient does have a left foot fracture for which she has been told to walk in a boot. Repeat x-ray does not show a fracture at this time. Patient does admit to multiple bouts of pancreatitis and has been hospitalized many times in the area. He denies any previous colonoscopy, states that his last EGD was many years ago and diagnosed with esophageal varices. Patient does state that he got a call last week stating he has some type of carcinoma in his liver. The records were reviewed here and there were no signs of said diagnosis. Will attempt to obtain records from other hospitals. Patient does not follow with the primary care physician nor fur repairer. His management has been consulted to assist. DS: Diagnosis - Discharge Diagnosis (1) Acute pancreatitis Status: Acute DS: Medications - Discharge Medications Prescriptions: chlordiazepoxide HCl 25 mg PO DIRECTED #20 cap DS: Summary Hospital Course: 42-year-old male with known history of alcohol abuse, chronic pancreatitis, polysubstance abuse who presented to the hospital with intractable abdominal pain. Patient had workup done in emergency department and found to have elevated liver enzymes, elevated lipase level and was recommended admission for acute pancreatitis. Patient was admitted with IV fluids, pain control, n.p.o., GI consultation. Patient tolerated treatment for pancreatitis quite well. He no longer required any IV pain medicine after the first 24 hours. He started tolerating liquid diet and slowly advance to full regular diet. However patient did have acute alcohol intoxication and unfortunately went into alcohol withdrawal. Patient was continued on CIWA protocol in which he did receive IV Ativan on her routine basis due to elevated CIWA scores. Patient was started on Librium 50 mg with titration down to 25 mg every 6 hours. Patient continued to withdraw and did not have any acute seizures. Patient does have history of seizures and he was started on his antiseizure medication during his hospitalization. Patient continued treatment with continued improvement of his withdrawal symptoms until he is no longer experiencing any symptoms at this time. Patient did indicate that he was recently hospitalized somewhere in with. Outside records were obtained. CT scan did not indicate any acute abnormality or acute pancreas abnormality. MRI of the liver was requested by GI physician which did not indicate any mass or lesion. Did indicate continued cirrhosis. Electronic Technician did recommend the patient follow-up outpatient setting Off during his hospitalization. Currently the patient's clinical status is stabilized. He is having problems with social issues where he is no longer welcome back at his home. Case management was consulted and supplied the patient with multiple resources for places to stay, [facility] for discharge planning. We will plan discharge accordingly. - Time Spent with Patient Total time spent providing and/or coordinating discharge services: Greater than 30 minutes - Quality: VTE Deep Vein Thrombosis/Pulmonary Embolism Present on Admission: No Exam Vital signs: Vital Signs 02/18/18 12:00 02/18/18 16:00 02/18/18 20:00 Temperature 97.0 F L 97.6 F 97.0 F L Pulse Rate 70 62 69 Respiratory Rate 16 16 20 Blood Pressure 117/68 118/79 115/68 Pulse Oximetry 98 98 96 02/19/18 00:00 02/19/18 08:00 Temperature 97.7 F 96.8 F L Pulse Rate 63 69 Respiratory Rate 20 15 Blood Pressure 103/56 L 111/70 Pulse Oximetry 96 96 Intake & Output 02/18/18 02/19/18 02/19/18 18:59 06:59 18:59 Intake Total 1960 1000 / 1000 1200 / 1200 Balance 1960 1000 / 1000 1200 / 1200 Weight 95.1 kg Intake: IV 1001 / 1001 1000 / 1000 1000 / 1000 1/2 Normal Saline Inj 1,000 ML 900 / 900 1000 / 1000 1000 / 1000 @ 100 mls/hr IV.CONT .Q10H EVAN Rx#:[id number] Thiamine Inj 100 MG In NS Inj 101 / 101 100 ML @ 100 mls/hr IV.SIG DAILY EVAN Rx#:[id number] Oral 960 / 960 200 / 200 Other: # Voids 5 1 Date of Last Bowel Movement 02/17/18 02/18/18 # Bowel Movements 0 Narrative: GENERAL: Well-developed, well-nourished, in no acute distress. alert and orientated, mildly lethargic HEENT: Head is normocephalic without any lesions or masses noted. Facial features are symmetric. Eyes: Pupils are dilated. Extraocular muscles are intact. Conjunctivae were clear. No nystagmus were seen NECK: Supple without any masses. Trachea midline no deviation. No JVD, CARDIAC: Regular rhythm, regular rate. S1/S2 are heard. No murmurs gallops or rubs. LUNGS: Clear to auscultation bilaterally. No wheeze, rhonchi or rales. No use of accessory muscles on inspiration or expiration. ABDOMEN: Soft, nontender. Nondistended. Bowel sounds heard in all 4 quadrants. No organomegaly or masses. Negative rebound, negative guarding EXTREMITIES: No edema, pulses are equal bilaterally. No cyanosis or clubbing NEUROLOGY: Mood and affect appear appropriate. Cranial nerves II through XII grossly intact. Moving all extremities, speech is clear. No extremity tremors were appreciated Results Procedures completed during hospitalization: None Labs on day of discharge: Labs from last 24 hours 02/18/18 08:50 Sodium 140 Potassium 3.3 L Chloride 104 Carbon Dioxide 29.4 Anion Gap 7 BUN 3 L Creatinine 0.71 Estimated GFR Greater than 89 Random Glucose 110 H Calcium 7.6 L Total Bilirubin 1.6 H AST 402 H ALT 309 H Alkaline Phosphatase 336 H Total Protein 6.7 Albumin 2.6 L Lipase 577 H - Impressions ITS Impressions Chest X-Ray 02/15/18 01:27 CONCLUSION: Negative examination. Foot X-Ray 02/15/18 03:05 CONCLUSION: Prior trauma. Osteopenia. Abdomen/Pelvis CT 02/15/18 03:22 CONCLUSION: 1. Mild wall thickening involving multiple loops of proximal small bowel without dilatation. 2. Mild stranding of the root of the mesentery. This could relate to venous congestion secondary to the patient's underlying liver disease. 3. Cirrhosis. 4. Long-term stable mildly enlarged retroperitoneal lymph nodes. Abdomen MRI 02/17/18 07:08 CONCLUSION: 1. Cirrhosis without a focal lesion identified. 2. Findings associated with portal hypertension include marked splenomegaly. There is no ascites. Also related to the chronic liver disease are the chronically enlarged lymph nodes and bilateral gynecomastia. Discharge Plan - Discharge Disposition Patient Disposition: 01 Discharge Home - Discharge Condition Condition: Stable - Discharge Order Discharge Orders: Discharge Order (Routine); Ordered 02/19/18 Ordered By: Elliott Huitron - Discharge Details Anticipated Discharge Date: 02/19/18 - Physicians Team Primary Care Provider: Primary Care Tiffanie,No Attending Provider: Daylin Shepard Other Providers: Meliton Barkley MD
== END 2018-02-19 10:28 | disposition home or self-care (01) ==
LOC: PHED 00:45 → PHEDA 03:24 → PH3 05:19 → PHICU 16:15 → PH3 19:51
PROVIDERS: ADMIT Internal Medicine; ATTEND Internal Medicine

== ENCOUNTER 2018-03-28 11:57 | Inpatient (IN) ==
[2018-03-28] MEDS ORDERED: Sod Chloride 0.9% Inj 1,000 ML IV.CONT SCH (12:15)
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
[2018-03-28 13:31] LABS: Baso % (Auto) 1.1 % (0.0-2.0); Eos # (Auto) 0.1 th/mm3 (0.0-0.4); Eos % (Auto) 1.2 % (0.0-4.0); Hemoglobin 11.9 gm/dL (13.0-17.0); Lymph # (Auto) 1.5 th/mm3 (1.0-4.8); Lymph % (Auto) 33.4 % (9.0-44.0); Mean Corpuscular HGB Conc 32.1 % (32.0-36.0); Mean Corpuscular Hemoglobin 26.5 pg (27.0-34.0); Mean Corpuscular Volume 82.4 fL (80.0-100.0); Mean Platelet Volume 7.2 fL (7.0-11.0); Mono # (Auto) 0.4 th/mm3 (0.0-0.9); Mono % (Auto) 9.8 % (0.0-8.0); Neut # (Auto) 2.4 th/mm3 (1.8-7.7); Neut % (Auto) 54.5 % (16.0-70.0); Platelet Count 130 th/mm3 (150-450); Red Blood Count 4.49 mil/mm3 (4.50-5.90); Red Cell Distribution Width 24.2 % (11.6-17.2); White Blood Count 4.5 th/mm3 (4.0-11.0)
[2018-03-28 13:40] LABS: Activated Partial Thrombo Time 28.4 sec (23.4-31.7); INR 1.1 Ratio; Prothrombin Time 11.1 sec (9.8-11.6)
[2018-03-28 13:44] LABS: Anion Gap 5 meq/L (5-15); Blood Urea Nitrogen 13 mg/dL (7-18); Calcium 7.9 mg/dL (8.5-10.1); Carbon Dioxide 28.5 meq/L (21.0-32.0); Chloride 113 meq/L (98-107); Glomerular Filtration Rate Greater Than 89 mL/min (>89); Glucose,Random 83 mg/dL (74-106); Lipase 531 U/L (73-393); Potassium 4.4 meq/L (3.5-5.1); Sodium 146 meq/L (136-145)
[2018-03-28 13:48] LABS: Alcohol 361 mg/dL (0-5)
[2018-03-28] MEDS ORDERED: Morphine Sulfate Inj 2 MG/ML Vial IV.PUSH ONE (14:08)
[2018-03-28] MEDS ORDERED: Morphine Inj 4 MG/ML Vial IV.PUSH ONE (14:15)
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
--- NOTE | 2018-03-28 16:58 | XR ---
EXAM DATE: 03/28/2018 4:07 PM EST AGE/SEX: 42 years / Male INDICATIONS: Post reduction. CLINICAL DATA: This is the patient's initial encounter. Patient reports that signs and symptoms have been present for 1 day and indicates a pain score of 10/10. MEDICAL/SURGICAL HISTORY: None. None. [place] [facility] [place]. . FINDINGS: Post reduction images of the comminuted distal radial metaphyseal and ulnar styloid fracture show exc ellent realignment of the major fracture fragments. CONCLUSION: Closed reduction of the comminuted distal radial metaphyseal fracture with excellent alignment of the fracture fragments Electronically signed by: Manny Valdez MD Board Certified Radiologist 03/28/2018 4:57 PM EST
[2018-03-28] MEDS ORDERED: Naloxone Inj 0.4 MG/ML Vial IV.PUSH PRN (17:07)
[2018-03-28] MEDS ORDERED: Acetaminophen 325 MG Tablet PO PRN ×2 (17:07)
[2018-03-28] MEDS ORDERED: Bisacodyl 10 MG Supp RECTAL PRN (17:07)
[2018-03-28] MEDS ORDERED: Haloperidol Inj 5 MG/ML Ampul IV.PUSH PRN (17:09)
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
[2018-03-28] MEDS: Senna/Docusate Sodium 8.6/50 MG Tablet PO SCH (20:03)
[2018-03-28] MEDS: chlordiazePOXIDE 25 MG Capsule PO SCH (20:03)
[2018-03-28] MEDS: LORazepam 1 MG Tablet PO PRN ×2 (20:03→23:51)
[2018-03-28] MEDS: carBAMazepine 200 MG Tablet PO SCH (23:19)
[2018-03-29] MEDS ORDERED: Chlorhexidine Gluconate 2% 1 Pack (2 Cloths) TOPICAL ONE (02:58)
[2018-03-29] MEDS ORDERED: Sodium Chlor 0.9% Inj 500 ML IV.SIG SCH (03:00)
[2018-03-29] MEDS: LORazepam 1 MG Tablet PO PRN ×2 (03:26→09:23)
[2018-03-29] MEDS: chlordiazePOXIDE 25 MG Capsule PO SCH ×2 (05:34→14:29)
[2018-03-29 05:59] LABS: Baso % (Auto) 0.8 % (0.0-2.0); Eos % (Auto) 1.1 % (0.0-4.0); Hematocrit 31.6 % (39.0-51.0); Hemoglobin 10.2 gm/dL (13.0-17.0); Lymph # (Auto) 1.2 th/mm3 (1.0-4.8); Lymph % (Auto) 30.8 % (9.0-44.0); Mean Corpuscular HGB Conc 32.4 % (32.0-36.0); Mean Corpuscular Hemoglobin 26.4 pg (27.0-34.0); Mean Corpuscular Volume 81.4 fL (80.0-100.0); Mean Platelet Volume 7.6 fL (7.0-11.0); Mono # (Auto) 0.5 th/mm3 (0.0-0.9); Mono % (Auto) 13.8 % (0.0-8.0); Neut % (Auto) 53.5 % (16.0-70.0); Platelet Count 80 th/mm3 (150-450); Red Blood Count 3.88 mil/mm3 (4.50-5.90); Red Cell Distribution Width 23.8 % (11.6-17.2); White Blood Count 3.8 th/mm3 (4.0-11.0)
[2018-03-29 06:24] LABS: Anion Gap 9 meq/L (5-15); Aspartate Aminotransferase 243 U/L (15-37); Blood Urea Nitrogen 9 mg/dL (7-18); Calcium 7.7 mg/dL (8.5-10.1); Carbon Dioxide 27.5 meq/L (21.0-32.0); Chloride 107 meq/L (98-107); Glomerular Filtration Rate Greater Than 89 mL/min (>89); Glucose,Random 71 mg/dL (74-106); Potassium 3.9 meq/L (3.5-5.1); Sodium 143 meq/L (136-145)
[2018-03-29 06:26] LABS: Alanine Aminotransferase 206 U/L (12-78)
[2018-03-29 06:28] LABS: Alkaline Phosphatase 184 U/L (45-117); Total Protein 7.3 g/dL (6.4-8.2)
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
[2018-03-29 07:15] LABS: Platelet Morphology Normal (Normal)
[2018-03-29] MEDS ORDERED: Bupivacaine/Epinephrine Inj 0.25% 50 ML Vial ONE (08:14)
[2018-03-29] MEDS ORDERED: Morphine Inj 4 MG/ML Vial IV.PUSH PRN (08:48)
--- NOTE | 2018-03-29 08:51 | P.OP ---
- Preoperative Diagnosis (1) Fracture of wrist Date of procedure: 03/29/18 Procedure: Open reduction internal fixation left distal radius Anesthesia: GETA Surgeon: Gabriele Garrison MD Health Advisor: NANO Godoy PA-C The surgical procedure was assisted by my physician residential real estate assistant. My P.A. presence was necessary throughout this case for the manipulation and positioning of the surgical extremity. My P.A. was assisting me throughout the duration of this procedure. The skill set of a physician residential real estate assistant was medically necessary to complete this procedure. During the surgical case the surgical instrument maker was working at the back table and the physician residential real estate assistant was directly assisting me. Operation and Findings: Implants used: ITS Plan of activity: Nonweightbearing Details of procedure: Patient was seen and evaluated preoperatively and found to have a displaced distal radius fracture. Informed consent was obtained after detailed discussion of risk and benefits including bleeding, infection, injury to arteries, nerves, and blood vessels, weakness and numbness of hand, and tendon rupture. Informed consent was obtained. Patient received IV antibiotics prior to incision. Timeout procedure was performed. Operative extremity was prepped with alcohol followed by Hibiclens and draped usual sterile fashion. A standard volar approach to the distal radius was utilized. A 3 inch incision was made over the FCR tendon. Tendon sheath was opened. Pronator quadratus was elevated up. The fracture site was now visualized. The fracture did have intra-articular extension. Traction was applied. The articular surface was reduced. Fracture fragments were manipulated to achieve excellent reduction. K wires were used to hold provisional fixation. Fluoroscopy confirmed appropriate alignment of fracture. A variable angle distal radius plate was selected. Plate was provisionally fixed to bone with K wires. 2.7 and 2.4 cortical screws were used to compress plate to bone. Fluoroscopy confirmed appropriate alignment of fracture with well-placed hardware. Multiple 2.4 locking screws were now placed distally. Screws were predrilled and measured for appropriate length. 2 additional screws were placed into the shaft. K wires were removed. Final fluoroscopy revealed excellent of fracture with well- placed hardware. The wound was thoroughly irrigated with sterile saline. Subcutaneous tissue was closed with 3-0 Vicryl and skin was closed with 3-0 nylon. Sterile dressings were applied with Xeroform, 4 x 4, soft roll, and a well padded volar splint. Patient was awakened and transferred to recovery room in stable condition
[2018-03-29] MEDS ORDERED: fentaNYL Citrate Inj 100 MCG/2 ML Ampul ONE (09:14)
[2018-03-29] MEDS ORDERED: *morphine SULFATE 10 MG/ML PERIprocedure ONLY ONE (09:17)
[2018-03-29] MEDS: carBAMazepine 200 MG Tablet PO SCH (11:05)
[2018-03-29] MEDS: Senna/Docusate Sodium 8.6/50 MG Tablet PO SCH (11:05)
--- NOTE | 2018-03-29 11:50 | P.PN ---
Subjective Interval history: Follow-up left wrist fracture March 29, 2018-patient seen and examined, he is s/p Open reduction internal fixation left distal radius and complaint of poorly controlled left upper extremity pain. Patient states, is homeless and has nowhere to go to and would like to stay in hospital 1 more day. Case discussed with transplant case manager. Physical Exam Vital signs: Vital Signs 03/28/18 12:06 03/28/18 12:13 03/28/18 15:30 Temperature 98 F Pulse Rate 95 H 90 Respiratory Rate 20 Blood Pressure 128/59 L Pulse Oximetry 98 97 03/28/18 15:58 03/28/18 17:20 03/28/18 17:49 Temperature 97.9 F 97.2 F L Pulse Rate 61 64 82 Respiratory Rate 18 14 20 Blood Pressure 141/64 H 138/62 129/85 Pulse Oximetry 98 99 100 03/28/18 20:24 03/28/18 23:02 03/29/18 00:00 Temperature 97.7 F 98.2 F Pulse Rate 100 H 99 H 100 H Respiratory Rate 18 18 Blood Pressure 121/69 95/51 L Pulse Oximetry 99 95 03/29/18 03:56 03/29/18 04:00 03/29/18 04:26 Temperature 97.8 F Pulse Rate 80 73 Respiratory Rate 18 18 Blood Pressure 100/57 L Pulse Oximetry 96 03/29/18 09:05 03/29/18 09:15 03/29/18 09:25 Temperature 98.4 F Pulse Rate 84 88 Respiratory Rate 13 13 12 Blood Pressure 137/77 139/74 Pulse Oximetry 98 99 03/29/18 09:30 03/29/18 09:45 03/29/18 10:00 Temperature 98.1 F Pulse Rate 83 88 83 Respiratory Rate 12 14 13 Blood Pressure 129/66 123/65 133/56 L Pulse Oximetry 93 L 98 98 Intake & Output 03/28/18 03/29/18 03/29/18 18:59 06:59 18:59 Intake Total 1000 / 1000 0 / 0 Balance 1000 / 1000 0 / 0 Weight 90.718 kg 90.7 kg Intake: IV 1000 / 1000 NS Inj 1,000 ML @ 1000 mls/hr 1000 / 1000 IV.CONT .Q1H [facility] Rx#:[id number] Oral 0 / 0 Other: # Voids 4 Date of Last Bowel Movement 03/28/18 # Bowel Movements 0 Narrative: GENERAL: NAD SKIN: Warm and dry. HEAD: Atraumatic. Normocephalic. EYES: Pupils equal and round. No scleral icterus. No injection or drainage. ENT: No nasal bleeding or discharge. Mucous membranes pink and moist. NECK: Trachea midline. No JVD. CARDIOVASCULAR: Regular rate and rhythm. RESPIRATORY: No accessory muscle use. Clear to auscultation. Breath sounds equal bilaterally. GASTROINTESTINAL: Abdomen soft, non-tender, nondistended. Hepatic and splenic margins not palpable. MUSCULOSKELETAL: Extremities without clubbing, cyanosis, or edema. No obvious deformities. Dressing over left upper extremity-neurovascular intact NEUROLOGICAL: Awake and alert. No obvious cranial nerve deficits. Motor grossly within normal limits. Five out of 5 muscle strength in the arms and legs. Normal speech. PSYCHIATRIC: Appropriate mood and affect; insight and judgment normal. Results - Labs CBC & Chem 7: 03/29/18 04:40 03/29/18 04:40 Laboratory Results - last 24 hr 03/28/18 03/28/18 03/28/18 13:00 13:00 13:00 WBC 4.5 RBC 4.49 L Hgb 11.9 L Hct 37.0 L MCV 82.4 MCH 26.5 L MCHC 32.1 RDW 24.2 H Plt Count 130 L MPV 7.2 Prelim Diff (Auto) Neut % (Auto) 54.5 Lymph % (Auto) 33.4 [place] % (Auto) 9.8 H Eos % (Auto) 1.2 Baso % (Auto) 1.1 Neut # (Auto) 2.4 Lymph # (Auto) 1.5 [place] # (Auto) 0.4 Eos # (Auto) 0.1 Baso # (Auto) 0.0 WBC Differential . Diff Scan Differential Comment Auto diff final Platelet Estimate Platelet Morphology PT 11.1 INR 1.1 APTT 28.4 Sodium 146 H Potassium 4.4 Chloride 113 H Carbon Dioxide 28.5 Anion Gap 5 BUN 13 Creatinine 0.83 Estimated GFR Greater than 89 Random Glucose 83 Calcium 7.9 L Total Bilirubin AST ALT Alkaline Phosphatase Total Protein Albumin Lipase 531 H Serum Alcohol 361 H Blood Type Blood Type Recheck Antibody Screen 03/28/18 03/29/18 03/29/18 13:00 04:40 04:40 WBC 3.8 L RBC 3.88 L Hgb 10.2 L Hct 31.6 L MCV 81.4 MCH 26.4 L MCHC 32.4 RDW 23.8 H Plt Count 80 L D MPV 7.6 Prelim Diff (Auto) Slide review pending Neut % (Auto) 53.5 Lymph % (Auto) 30.8 [place] % (Auto) 13.8 H Eos % (Auto) 1.1 Baso % (Auto) 0.8 Neut # (Auto) 2.0 Lymph # (Auto) 1.2 [place] # (Auto) 0.5 Eos # (Auto) 0.0 Baso # (Auto) 0.0 WBC Differential . Diff Scan Auto diff confirmed Differential Comment . Platelet Estimate Low L Platelet Morphology Normal PT INR APTT Sodium 143 Potassium 3.9 Chloride 107 Carbon Dioxide 27.5 Anion Gap 9 BUN 9 Creatinine 0.67 Estimated GFR Greater than 89 Random Glucose 71 L Calcium 7.7 L Total Bilirubin 0.9 AST 243 H ALT 206 H Alkaline Phosphatase 184 H Total Protein 7.3 Albumin 3.0 L Lipase Serum Alcohol Blood Type A Positive Blood Type Recheck Required Antibody Screen Negative - Imaging Impressions Abdomen/Pelvis CT 03/28/18 12:06 CONCLUSION: 1. No acute intraperitoneal or pelvic visceral trauma or fracture. 2. CT findings of hepatic cirrhosis with portal hypertension. There is recanalization of the umbilical vein and splenomegaly. 3. Patient is status post cholecystectomy. 4. 2.3 cm left inguinal hernia only contains fat. 5. Probable reactive lymph nodes in the region of the michelle hepatis with the largest measuring approximately 5.6 cm in length. These are unchanged.. Cervical Spine CT 03/28/18 12:06 CONCLUSION: 1. Right-sided facet hypertrophy from C2-3 through C4-5. 2. However, the spinal canal and neural foramina are widely patent throughout without cord or nerve root compromise. 3. No acute fracture or listhesis. Chest CT 03/28/18 12:06 CONCLUSION: No acute thoracic trauma. Lungs are clear Chest X-Ray 03/28/18 12:06 CONCLUSION: The lungs are clear. Forearm X-Ray 03/28/18 12:06 CONCLUSION: Comminuted displaced fracture of the distal radius and ulnar with ulnar displacement of the distal fracture fragments and carpus. Head CT 03/28/18 12:06 CONCLUSION: Negative exam. No acute intracranial process, trauma or fracture. . Pelvis X-Ray 03/28/18 12:06 CONCLUSION: Negative examination. Wrist X-Ray 03/28/18 15:21 CONCLUSION: Closed reduction of the comminuted distal radial metaphyseal fracture with excellent alignment of the fracture fragments - Procedures s/p Open reduction internal fixation left distal radius 03/29/18 Assessment and Plan - Plan 42-year-old man with Left wrist fracture Wrist x-ray with comminuted displaced fracture of the distal radius and ulnar with ulnar displacement of the distal fracture fragments and carpus. s/p Open reduction internal fixation left distal radius 03/29/18 Management per orthopedic surgery Pain management accordingly Alcohol abuse monitor for withdraw symptoms, ativan prn for anxiety; cessation counseling provided. Continue with CIWA protocol, Rally pack, Librium scheduled History of hepatitis C Chronic DVT prophylaxis: Bilateral SCDs Discharge patient to home Condition on discharge: Improved Regular Diet as tolerated Ad Sandy activity Rx written: See EMR Follow-up with primary care physician Orthopedic surgery
--- NOTE | 2018-03-29 13:12 | XR ---
EXAM DATE: 03/29/2018 1:08 PM EST AGE/SEX: 42 years / Male INDICATIONS: Left wrist ORIF. CLINICAL DATA: This is the patient's initial encounter. Patient reports that signs and symptoms have been present for 1 day and indicates a pain score of Nonresponsive. MEDICAL/SURGICAL HISTORY: Non-responsive. Non-responsive. COMPARISON: No prior exams available for comparison. FINDINGS: 2 spot intraoperative fluoroscopic views of the wrist demonstrate: Plate and screw fixation of the di stal radial metaphyseal fracture. Excellent alignment. CONCLUSION: Postoperative changes left wrist. Electronically signed by: David Valentino MD Board Certified Radiologist 03/29/2018 1:11 PM EST
== END 2018-03-29 16:24 | disposition home or self-care (01) | DRG 511 ==
LOC: NEDA 11:57 → NEPE 11:57 → NEDA 17:41 → N06 17:48
PROVIDERS: ADMIT Hospitalist; ATTEND Hospitalist
CPT/HCPCS: 70450; 71010; 71045; 71260; 72125; 72170; 73090; 73100; 74177; 76000; 76937; 80048; 80053; 80307; 83690; 85025; 85610; 85730; 86850; 86900; 86901; 94770; C1713; C1776; J2250; J2270; J2405; J2704; J3010; J3370; J7030; J7120; L6380; Q9967